=== PATIENT | female | born 1980 | race African-American/Black ===

== ENCOUNTER → 2022-05-16 14:35 | Outpatient (CLI) | payer BC, SELFPAY ==
--- NOTE | ~2022-05-16 | MMUS_ITS ---
EXAMINATION: MM diagnostic stephen BI w daya, US breast BI complete HISTORY: Left 2:00 breast lump and indentation of right breast at 3:00 near cleavage. TECHNIQUE: ML, MLO and CC 3-D tomosynthesis images of both breasts were performed and synthetic 2-D i mages were generated. CAD analysis was submitted and interpreted. High resolution bilateral complete breast ultrasound examination including all 4 quadrants and subareolar areas was performed. COMPARISON: 06/22/2018 bilateral diagnostic mammography and complete right breast ultrasound BREAST PARENCHYMAL COMPOSITION: The breasts are extremely dense, which lowers the sensitivity of mamm ography. FINDINGS: MAMMOGRAPHIC FINDINGS: No suspicious mass or architectural distortion, malignant calcification, skin thickening or retractio n or significant new or developing density is detected. Scattered bilateral benign appearing microcal cifications, mostly punctate....................... ULTRASOUND: There are scattered bilateral renal cysts, the largest on the right situated at 2:00 3 cm from the nipple, measuring 7.8 x 13.8 x 14.5 mm, with through transmission and posterior enhancement . The largest on the left measures 4.2 x 5.9 x 6.3 mm, situated at 2:00 8 cm from nipple. There is a parallel circumscribed hypoechoic 3.4 x 5.8 x 6.5 mm lesion at numerous 2:00 4 cm from the nipple, without shadowing. No suspicious solid lesion or shadowing of either breast is evident. IMPRESSION: 1. Benign findings 2. Routine annual mammographic screening is recommended BI-RADS Category 2: Benign finding(s). Reviewed, dictated and finalized at location A. FICATION MANAGER IMPRESSION: 1. Benign findings 2. Routine annual mammographic screening is recommended BI-RADS Category 2: Benign finding(s).
== END ==
PROVIDERS: PCP Nurse Practitioner; Visit Provider Nurse Practitioner
DX: N63.21 Unspecified lump in the left breast, upper outer quadrant (principal); R92.8 Other abnormal and inconclusive findings on diagnostic imaging of breast
CPT/HCPCS: 76641; 77062; 77066; G0279

== ENCOUNTER 2023-10-12 07:54 | Outpatient (CLI) | payer BC, SELFPAY ==
--- NOTE | ~2023-10-12 | MMUS_ITS ---
EXAMINATION: MM diagnostic stephen BI w daya, US breast BI complete HISTORY: Palpable left breast lumps TECHNIQUE: Additional 3-D tomosynthesis images of the breasts were performed and synthetic 2-D images were generated. CAD analysis was submitted and interpreted. High resolution bilateral complete breas t ultrasound was performed. COMPARISON: Comparison to multiple prior studies sequentially, with oldest reviewed study dated 03/04. BREAST PARENCHYMAL COMPOSITION: Dense: The breasts are extremely dense, which lowers the sensitivity of mammography. FINDINGS: MAMMOGRAPHIC FINDINGS: . The breasts are stable. There are no new masses, calcifications or architectural distortion in eith er breast to suggest malignancy. ULTRASOUND: Complete bilateral US of all 4 quadrants of the breasts and retroareolar region was reviewed. Right breast: At 12:00, 4 cm from the nipple there is an oval parallel oriented hypoechoic 9 mm mass without posterior features, likely benign. At 3:00, 4 cm from the nipple, there is an 11 mm cyst. At 9:00, 2 cm from the nipple there is a 5 mm cyst. At 10:00, 10 cm from the nipple there is a 7 mm cyst . In the subareolar location there is a 3 mm cyst. Left breast: At 2:00 7 cm from the nipple there is an 8 mm cyst. At 8:00, 4 cm from the nipple there is a slightly irregular shaped hypoechoic parallel oriented 5 mm mass with heterogeneous internal ech otexture, posterior acoustic enhancement and no internal vascularity. IMPRESSION: 1. Probable benign bilateral breast masses. 2. Recommend 6 month follow-up Limited right breast ultrasound of mass at 12:00, 4 cm from the nipple measuring 9 mm and in the left breast at 8:00, 4 cm from the nipple measuring 5 mm. BI-RADS category 3, probably benign findings. Reviewed, dictated and finalized at location B. IMPRESSION: 1. Probable benign bilateral breast masses. 2. Recommend 6 month follow-up Limited right breast ultrasound of mass at 12:00 , 4 cm from the nipple measuring 9 mm and in the left breast at 8:00, 4 cm from the nipple measuring 5 mm. BI-RADS category 3, probably benign findings.
== END 2023-10-12 07:55 ==
LOC: MICIMG 07:55
PROVIDERS: PCP Nurse Practitioner; Visit Provider Nurse Practitioner
DX: R92.8 Other abnormal and inconclusive findings on diagnostic imaging of breast (principal)
CPT/HCPCS: 76641; 77062; 77066; G0279

== ENCOUNTER 2025-03-20 02:49 | Day surgery (SDC) | payer BC, SELFPAY ==
--- OUTSIDE RECORDS SUMMARY | 2016-03-25 | XMS_ITS | Encounter Summary ---
Author Organization [facility] Healthcare Address [address] [place] [address] Care Team Providers Care Rag Washer Name Role Phone Unavailable Primary Care Provider Unavailabl e Reason for Visit * Diagnostic Imaging (Routine) - Closed Specialty Diagnoses / Procedures Referred By Damian fu Referred To Contact Procedures Breast Imaging US Outside Reference Katie Childers NP Phone: tel: fax: Referral ID Status Reason Start Date Expiration Date Visits Re quested Visits Authorized [id number] Closed 05/23/2022 06/22/2023 1 1 Encounter Details Date Type Department Care Team (Late st Contact Info) Description 03/25/2016 Hospital Encounter [facility] [address] [place] [address] Social History Tobacco Use Types Packs/Day Years Used Date Smoking Tobacco: Never Passive Smoke Exposure: Never Smokeless Tobacco: Never Alcohol Use Standard Drinks/Week Comments Yes 0 (1 standard drink = 0.6 oz pur e alcohol) PHQ-2 Answer Date Recorded PHQ-2 Total Score (If total score is 3 or more points, staff should administer the PHQ-9) 4 01/13/2025 PHQ-9 Answer Date Recorded PHQ-9 Total Score 13 01/13/2025 AUDIT-C Answer Date Recorded Q1: How often do you have a drink containing alc ohol? Monthly or less 01/13/2025 Q2: How many drinks containi ng alcohol do you have on a typical day when you are drinking? 1 or 2 01/13/2025 Q3: How often do you have si x or more drinks on one occasion? 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 Gender Identity Female 10/14/2019 9:21 AM CDT Sexual Orientation Not on file documented as of this encounter Plan of Treatment Not on file documented as of this encounter Procedures Procedure Name Priority Date/Time Associated Diagnosis Comments BREAST IMAGING US OUTSIDE REFERENCE Routine 03/25/2016 12:00 AM GARBAGE COLLECTION SUPERVISOR documented in this encounter Results * Breast Imaging US Outside Reference (03/25/2016 12:00 AM GARBAGE COLLECTION SUPERVISOR) Impressions [facility] - 05/23/2022 8:39 AM GARBAGE COLLECTION SUPERVISOR These images are for Reference purposes only and have not been reviewed by [facility]. There will be no report generated by a [facility] Radiologist. Narrative [facility] - 05/23/2022 8:39 AM GARBAGE COLLECTION SUPERVISOR EXAMINATION: Images For Reference Purposes Only us Katie Childers DYE RANGE OPERATOR IMG MAMMO PROCEDURES Fin al Result [facility] documented in this encounter Visit Diagnoses Not on filedocumented in this encounter
--- OUTSIDE RECORDS SUMMARY | 2016-03-25 00:05 | XMS_ITS | Encounter Summary ---
Author Organization [facility] Healthcare Address [address] [place] [address] Care Team Providers Care Electronic Equipment Installer Name Role Phone Unavailable Primary Care Provider Unavailabl e Reason for Visit * Diagnostic Imaging (Routine) - Closed Specialty Diagnoses / Procedures Referred By Damian fu Referred To Contact Procedures Breast Imaging Diagnostic Outside Reference Katie Childers NP Phone: tel: fax: Referral ID Status Reason Start Date Expiration Date Visits Re quested Visits Authorized [id number] Closed 05/23/2022 06/22/2023 1 1 Encounter Details Date Type Department Care Team (Late st Contact Info) Description 03/25/2016 12:05 AM INTERNET ASSESSOR Hospital Encounter [facility]) [address] [place] [address] Social History Tobacco Use Types Packs/Day Years [...] on file Legal Sex Female 4:50 AM INTERNET ASSESSOR Gender Identity Female 10/14/2019 9:21 AM CDT Sexual Orientation Not on file documented as of this encounter Plan of Treatment Not on file documented as of this encounter Procedures Procedure Name Priority Date/Time Associated Diagnosis Comments BREAST IMAGING MG DIAGNOSTIC OUTSIDE REFERENCE Routine 03/25/2016 12:05 AM INTERNET ASSESSOR documented in this encounter Results * Breast Imaging Diagnostic Outside Reference (03/25/2016 12:05 AM INTERNET ASSESSOR) Impressions [facility] - 05/23/2022 8:39 AM INTERNET ASSESSOR These images are for Reference purposes only and have not been reviewed by [facility]. There will be no report generated by a [facility] Radiologist. Narrative [facility] - 05/23/2022 8:39 AM INTERNET ASSESSOR EXAMINATION: Images For Reference Purposes Only us Katie Childers NP IMG MAMMO PROCEDURES Fin al Result [facility] documented in this encounter Visit Diagnoses Not on filedocumented in this encounter
--- OUTSIDE RECORDS SUMMARY | 2018-06-21 23:00 | XMS_ITS | Encounter Summary ---
Author Organization [facility] Healthcare Address [address] [place] [address] Care Team Providers Care Body Straightener Name Role Phone No, Physician Primary Care Provider [phone] Reason for Visit * Diagnostic Imaging (Routine) - Closed Specialty Diagnoses / Procedures Referred By Contanton t Referred To Contact Procedures Breast Imaging US Outside Reference Katie Childers NP Phone: tel: fax: Referral ID Status Reason Start Date Expiration Date Visits Re quested Visits Authorized [id number] Closed 05/23/2022 06/22/2023 1 1 Encounter Details Date Type Department Care Team (Late st Contact Info) Description 06/22/2018 Hospital Encounter [facility] [address] [place] [address] Social History Tobacco Use Types Packs/Day Years [...] on file 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 There will be no report generated by a [facility] Radiologist. Narrative [facility] - 05/23/2022 8:38 AM HELICOPTER PILOT INSTRUCTOR EXAMINATION: Images For Reference Purposes Only us Katie Childers HEPATOLOGY PHYSICIAN IMG MAMMO PROCEDURES Fin al Result [facility] documented in this encounter Visit Diagnoses Not on filedocumented in this encounter Care Teams Body Straightener Relationship Specialty Start Date End Date No, Physician PCP - General 04/17/17 01/12/25 documented as of this encounter
--- OUTSIDE RECORDS SUMMARY | 2018-06-21 23:05 | XMS_ITS | Encounter Summary ---
Author Organization [facility] Healthcare Address [address] [place] [address] Care Team Providers Care Police Officer Name Role Phone No, Physician Primary Care Provider [phone] Reason for Visit * Diagnostic Imaging (Routine) - Closed Specialty Diagnoses / Procedures Referred By Contanton t Referred To Contact Procedures Breast Imaging Diagnostic Outside Reference Katie Childers NP Phone: tel: fax: Referral ID Status Reason Start Date Expiration Date Visits Re quested Visits Authorized [id number] Closed 05/23/2022 06/22/2023 1 1 Encounter Details Date Type Department Care Team (Late st Contact Info) Description 06/22/2018 12:05 AM CDT Hospital Encounter 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 Gender Identity Female 10/14/2019 9:21 AM CDT Sexual Orientation Not on file documented as of this encounter Plan of Treatment Not on file documented as of this encounter Procedures Procedure Name Priority Date/Time Associated Diagnosis Comments BREAST IMAGING MG DIAGNOSTIC OUTSIDE REFERENCE Routine 06/22/2018 12:05 AM CDT documented in this encounter Results * Breast Imaging Diagnostic Outside Reference (06/22/2018 12:05 AM CDT) Impressions [facility] - 05/23/2022 8:38 AM STATISTICAL MACHINE SERVICER These images are for Reference purposes only and have not been reviewed by [facility]. There will be no report generated by a [facility] Radiologist. Narrative [facility] - 05/23/2022 8:38 AM STATISTICAL MACHINE SERVICER EXAMINATION: Images For Reference Purposes Only us Katie Childers TEACHER SPECIALIST IMG MAMMO PROCEDURES Fin al Result [facility] documented in this encounter Visit Diagnoses Not on filedocumented in this encounter Care Teams Police Officer Relationship Specialty Start Date End Date No, Physician PCP - General 04/17/17 01/12/25 documented as of this encounter
[2025-03-18 13:17] VITALS: BMI 29.7
--- NOTE | 2025-03-18 13:29 | PC.NURSE ---
[facility] has started construction of its new state of the art ER which will open Spring 2026. With this, we anticipate parking may be a challenge for some our surgical patients and families. Parking spaces are limited but are available for all Surgical, obstetrics, and ER patients sharing this lot. If you arrive and find you are having a hard time finding a parking space, please note that we understand the challenges, please drive around the hospital and park near Hospital Entrance 1. When you enter this entrance, you can ask a volunteer to direct or take you back to the surgical waiting area to check in. We appreciate everyone?s understanding of these expected challenges while we build for your future. Report to the Outpatient Waiting Room, entrance under the green pavilion located off [address], at time _0900 on date _03/20/2025 . Planned Procedure Time: _1100 .? Time changes happen often and if your time is changed the preop area will call you the afternoon before. - You and your visitor will be asked to self-screen and do not enter if you have any COVID symptoms. Please call surgeon if you need to reschedule. - A mask is optional within the hospital at this time. Patients may have clear liquids (water, carbonated beverages, clear teas, apple juice) until 3 hours prior to surgery with a maximum of 20 ounces. - No food from midnight until time of surgery and no smoking, or chewing tobacco (or any form of nicotine). No chewing gum, candy or mints. - Infants may have breast milk until 4 hours before surgery, formula 6 hours prior to surgery. - Children will be allowed to drink immediately following surgery.? If applicable, please bring a bottle or sippy cup to assist with drinking. Juice, water, soda, and popsicles are readily available.? For infants on formula, please bring formula the day of surgery.? Pacifiers are allowed. Take only the following medications with a SIP of water on the morning of surgery: _N/A DO NOT STOP ANY OF YOUR OTHER PRESCRIPTION MEDICATIONS PRIOR TO SURGERY EXCEPT THE FOLLOWING Hold all vitamins and supplements for 3 days per anesthesiologist. Medications to discontinue per physician __Phentermine, has been stopped for a month Please no make-up, nail irish, hairspray, perfume, deodorant, or body powder the day of surgery.? No jewelry (including any body piercings) or valuables the day of surgery, leave them at home.? Please take a shower or bath the night before, or the morning of, surgery with an antibacterial soap.? Wear comfortable, loose fitting clothing.? Children are encouraged to wear pajamas. - Jewelry must be removed prior to entering the operating room.? Rings and piercings that are not removed may be cut off. - The hospital will not accept responsibility for valuables.? - Please leave all valuables, including medications, at home the day of surgery. If you are going home after surgery, a licensed courier delivery driver must drive you home.? - NO public transportation without another adult if you receive anesthesia. - We recommend that an adult stay with you for 24 hours following discharge. - We also recommend that you do not drive, make important decision, drink alcoholic beverages, or take any drugs that were not prescribed by your health care provider for at least 24 hours after your discharge time. For Pediatric surgeries, we recommend two adults accompany the child home. Follow any additional instructions given to you from your surgeon. Telephone instructions given to __Jocelyne and asked if any additional questions and then verbalized understanding. Patient advised to call surgeon office or pre surgery nurse liaison [phone] if any additional questions.
[2025-03-20] VITALS (12 sets, daily range): BP systolic 97–137; BP diastolic 47–87; PULSE 70–95; RESP 12–17; TEMP 36.3–37.1; O2SAT 98–100
--- OUTSIDE RECORDS SUMMARY | 2025-03-20 02:52 | XMS_ITS | Patient Health Record ---
Author Organization [facility] Address [address] [place] [address] Care Team Providers Care Sales Promotion Representative Name Role Phone UNKNOWN, UNKNOWN Primary Care Provider Unavailab sp DewittaNagaie Unavailable [phone] Allergies No Known Allergies Reason For Referral No Information Medications Medication SIG (Take, Route, Fr equency, Duration) Notes Start Date End Date Status Multi Vitamin Daily Active Social History Tobacco Use: Social History Observation Description Date Details (start date - stop date) Never Smoker NA - NA Social History Tobacco Use: Social Info Question Answer Notes Tobacco Use/Smoking Are you a nonsmoker Additional Details Category Social Info Options Details Miscellaneous: Exercise: Moderate 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 De nies Alcohol use: Social alcohol u se Plan Of Treatment No Information Insurance Providers Payer Name Payer Address Payer Phone Subscriber Number Group Number Insured Name Patient Relationship to Insured Coverage Start Date Coverage End Date [facility] [address] [place] [address] [id number] Jocelyne Johns Self - patient is the insured [facility] [address] [place] [address] [id number] Jocelyne Johns Self - patient is the insured Medical (General) History Surgical History Surgery Date(Month/Year)
--- OUTSIDE RECORDS SUMMARY | 2025-03-20 02:52 | XMS_ITS | Clinical Summary ---
Author Organization [facility] Address [address] [place] [address] Phone Care Team Providers Care Marketing Content Coordinator Name Role Phone RonymenaChristine HVAC SERVICE TECH Unavailable [phone] [facility] Primary Care Provi umer Allergies No known active allergies Medications vitamin b complex tablet Take 1 tablet by mouth daily Active calcium carbonate-vitam in D3 2,500 mg (1,000 mg elemental)-800 unit tablet Take by mouth Acti ve BIOTIN ORAL Take by mouth Acti ve Simpesse 0.15 mg-30 mcg (84)/10 mcg (7) tablets,dose pack,3 month Take 1 tablet by mouth daily 5 Active sertraline (ZOLOFT) 50 mg tabletIndicatio ns:Anxiety with Depression Take 1 tablet (50 mg total) by mouth daily 90 tablet 1 5 01/14/20 26 Active traZODone (DESYREL) 100 mg tabletIndicatio ns:insomnia associated with depression Take 1 tablet (100 mg total) by mouth nightly as needed for sleep 90 tablet 1 5 Active phentermine (ADIPEX-P) 37.5 mg tablet Take 1 tablet (37.5 mg total) by mouth daily before breakfast 30 tablet 2 5 Active phentermine (ADIPEX-P) 37.5 mg tablet 0 5 03/17/20 25 Discontinu ed(Reorder ) Active Problems Problem Noted Date Diagnosed Date Annual physical exam 01/13/2025 Assessment & Plan (01/13/2025 6:58 AM CDT): Labs ordered Recommend drinking at least 64 oz of water daily Recommend at least 26g fiber daily Recommend at least 150 min of exercise weekly as tolerated Recommend taking daily multivitamin Continue eating a healthy well-balanced diet. Limit processed foods like white starches, fast food, sweets and soda. Increase your vegetable intake and limit red meat. Wear your seatbelt at all times. No texting and driving. Continue to manage your stress in a healthy manner. Follow-up 1 year for annual physical. Intrauterine polyp 01/13/2025 SHAILA (generalized anxiety disorder) 01/13/2025 Assessment & Plan (01/13/2025 9:39 AM CDT): Start sertraline 25 mg daily; sertraline 50 mg daily ordered, so take a half a tab daily. Medication and side effects reviewed Recommend therapy Follow up in one-month Current moderate episode of major depressive dis order 01/13/2025 Assessment & Plan (01/13/2025 9:40 AM CDT): Start sertraline 25 mg daily; sertraline 50 mg daily ordered, so take a half a tab daily. Medication and side effects reviewed Recommend therapy Follow up in one-month Perimenopause 01/13/2025 Insomnia, psychophysiological 01/13/2025 Assessment & Plan (01/13/2025 9:41 AM CDT): Take trazodone 50 mg nightly as needed; trazodone 100 mg tab ordered, so take half a tab nightly as needed Medication and side effects reviewed Follow up in one-month Encounter for weight loss counseling 01/13/2025 Assessment & Plan (01/13/2025 9:42 AM CDT): Continue phentermine 37.5 mg daily Monitor blood pressure, as phentermine can elevate blood pressure Follow up in one-month Blood pressure elevated without history of HTN 1 Assessment & Plan (01/13/2025 9:45 AM CDT): Keep a log of daily blood pressures Bring log to next appointment Goal blood pressure less than 140/90 Follow up in one-month Environmental and seasonal allergies 01/13/2025 Assessment & Plan (01/13/2025 9:45 AM CDT): Recommend taking a daily clca-[id number] antihistamine and Flonase to manage symptoms Overweight with body mass in dex (BMI) of 28 to 28.9 in adult 01/23/2015 Overview (01/13/2025): Body mass index (BMI) 28.0-28.9, adult;Practice ID: [id number] Assessment & Plan (01/13/2025 9:46 AM CDT): Continue phentermine 37.5 mg daily Your BMI is elevated. Try to cut back on calories. Most people should eat between 8208-0034 calories to lose weight. Goal BMI is less than 30. A healthy BMI is considered between 19-25. Decrease your carbohydrate intake to less than 150 grams per day if possible and increase protein to help with hunger. Increase activity to 30 min 4-5 days a week of moderate aerobic activity and add strength training 2 times weekly, as tolerated. Consider using Jaypore ricky to track diet and exercise habits daily. Consider trying Weight Watcher program to make dietary changes. Visit www.dietaryguidelines.gov, www.myplate.gov, or www.health.gov for more dietary information and tips. Visit www.[employer] or www.[employer] for online globe tester covered by health insurance. Congenital malformation 03/09/2014 Overview (01/13/2025): screening for malformation using ultrasonics;Practice ID: 0001 Breast lump 10/31/2012 Overview (01/13/2025): Breast Lump Or Mass;Recorded Elsewhere: No Location: [facility] Source: EHR Chronic: N Practice ID: [id number] Billable Time: 11:00:00 AM Resolved Problems Problem Noted Date Diagnosed Date Resolved Date Lump in lower outer quadrant of right breast 9 01/13/2025 Overview (01/13/2025): Unspecified lump in the right breast, lower outer quadrant;Practice ID: 0001 Acute vaginitis 03/20/2016 01/13/2025 Overview (01/13/2025): Acute vaginitis;Recorded Elsewhere: No Location: [facility] Source: EHR Chronic: N Practice ID: [id number] Billable Time: 08:30:00 AM High-risk human papillomavir us (HPV) DNA detected in cervical specimen 02/01/2015 01/13/2025 Overview (01/13/2025): Cervical high risk HPV DNA test positive;Recorded Elsewhere: No Location: [facility] Source: EHR Chronic: N Practice ID: [id number] Billable Time: 11:22:34 AM Cervical high risk HPV (jeanette n papillomavirus) test positive 04/02/2014 01/13/2025 Echogenic intracardiac focus of fetus on ultrasound 04/02/2014 01/13/2025 Dichorionic diamniotic twin 03/23/2014 01/13/2025 Overview (01/13/2025): TWIN GEST-DICH/DIAMNIOTC;Practice ID: [id number] Atypical squamous cells of u ndetermined significance (ASCUS) on Papanicolaou smear of cervix 02/10/2014 01/13/2025 Overview (01/13/2025): Papanicolaou smear of cervix with atypical squamous cells of undetermined significance (ASC-US);Recorded Elsewhere: No Location: [facility] Source: EHR Chronic: N Practice ID: [id number] Billable Time: 12:00:00 PM Amenorrhea 01/07/2014 01/13/2025 Overview (01/13/2025): Absence of menstruation;Recorded Elsewhere: No Location: [facility] Source: EHR Chronic: N Practice ID: [id number] Billable Time: 03:30:00 PM Conduction disorder of the heart 12/23/2013 01/13/2025 Overview (01/13/2025): Bradycardia;Recorded Elsewhere: No Location: [facility] Source: EHR Chronic: N Practice ID: [id number] Billable Time: 01:11:32 PM resulting from ass isted reproductive technology 12/16/2013 01/13/2025 Twin 12/16/2013 01/13/2025 Ovarian dysfunction 03/29/2013 01/14/20 25 Papanicolaou smear of cervix with atypical squamous cells cannot exclude high grade squamous intraepithelial lesion (ASC-H) 02/13/2013 01/13/2025 Overview (01/13/2025): Papanicolaou smear of cervix with atypical squamous cannot exclude high grade squamous intraepithelial lesion (ASC-H);Recorded Elsewhere: No Location: [facility] Source: EHR Chronic: N Practice ID: [id number] Billable Time: 04:30:00 PM Encounters Date Type Department Care Team Description 01/13/2025 9:00 AM CDT Office Visit [address] [place] [address] Tomeka Henry DNP Annual physical exam (Primary Dx); Encounter to establish care; Depression screen; Encounter for weight loss counseling; Blood pressure elevated without history of HTN; SHAILA (generalized anxiety disorder); Current moderate episode of major depressive disorder without prior episode (HCC); Insomnia, psychophysiological; Environmental and seasonal allergies; Perimenopause; Overweight with body mass index (BMI) of 28 to 28.9 in adult; Screening for diabetes mellitus; Lipid screening; Thyroid disorder screen; Encounter for vitamin deficiency screening; Encounter for long-term (current) use of medications; Breast cancer screening by mammogram; Need for immunization against influenza; Flu vaccine need 01/08/2025 Orders Only [address] [place] [address] No, Physician from Last 3 Months Immunizations Immunization Administration Dates Next Due Influenza, Trivalent, Preservative Free, Intramu scular 01/13/2025 Surgical History Surgery Date Site/Laterality Comments SECTION 04/03/2014 - 04/02/2015 had a wound vac due to being reopened CERVICAL BIOPSY W/ LOOP ELECTRODE EXCISION COLPOSCOPY Medical History Medical History Date Comments resulting from ass isted reproductive technology 12/16/2013 Cervical high risk HPV (jeanette n papillomavirus) test positive 04/02/2014 Twin 12/16/2013 Ovarian dysfunction 03/29/2013 Echogenic intracardiac focus of fetus on ultrasound 04/02/2014 Atypical squamous cells of undetermined significance (ASCUS) on Papanicolaou smear of cervix 02/10/2014 Papanicolaou smear of cer vix with atypical squamous cells of undetermined significance (ASC-US);Recorded Elsewhere: No Location: [facility] Source: EHR Chronic: N Practice ID: [id number] Billable Time: 12:00:00 PM Papanicolaou smear of cervix with atypical squamous cells cannot exclude high grade squamous intraepithelial lesion (ASC-H) 02/13/2013 Papanicolaou smear of c ervix with atypical squamous cannot exclude high grade squamous intraepithelial lesion (ASC-H);Recorded Elsewhere: No Location: [facility] Source: EHR Chronic: N Practice ID: [id number] Billable Time: 04:30:00 PM High-risk human papillomavir us (HPV) DNA detected in cervical specimen 02/01/2015 Cervical high risk H PV DNA test positive;Recorded Elsewhere: No Location: [facility] Source: EHR Chronic: N Practice ID: [id number] Billable Time: 11:22:34 AM Dichorionic diamniotic twin 03/23/2014 TWIN GEST- DICH/DIAMNIOTC;Practice ID: [id number] Conduction disorder of the heart 12/23/2013 Bradycardia;Recorded Elsewhere: No Location: [facility] Source: EHR Chronic: N Practice ID: [id number] Billable Time: 01:11:32 PM Lump in lower outer quadrant of right breast 05/27/2018 Unspecified lump in the righ t breast, lower outer quadrant;Practice ID: 0001 Family History Medical History Relation Name Comments Hypertension Father Cancer Maternal Grandfather Reporte d Family History Of Cancer - Mother- carcinoid, diagnosed in 40's, now doing well Grandfather- lung cancer, h/o tobacco use Relation: Grandfather (Added by TW Conv) Lung cancer Maternal Grandfather Diabetes Maternal Grandmother Obesity Maternal Grandmother Premature Menopause Maternal Grandmother Cancer Mother Reported Family History Of Cancer - Mother- carcinoid, diagnosed in 40's, now doing well Grandfather- lung cancer, h/o tobacco use (Added by TW Conv) Stomach cancer Mother metastatic carcinoid Mother Relation Name Status Comments Father Maternal Grandfather Maternal Grandmother Mother Social History Tobacco Use Types Packs/Day Years [...] on file Legal Sex Female 4:50 AM [employer] Gender Identity Female 10/14/2019 9:21 AM CDT Sexual Orientation Not on file Obstetrics History Para Term AB IAB SAB Ectopic Multiple Livin g Live Births 0 0 0 0 1 Comments Patient had one wi th twins in 2014. Delivered via . Last Filed Vital Signs Vital Sign Reading Time Taken Comments Blood Pressure 134/88 01/13/2025 8:46 AM CDT Pulse 81 01/13/2025 8:46 AM CDT Temperature 36.8 C (98.3 F) 01/13/2025 8:46 AM CDT Respiratory Rate 16 01/13/2025 8:46 AM CDT Oxygen Saturation 97% 01/13/2025 8:46 AM CDT Inhaled Oxygen Concentration - - Weight 73.9 kg (163 lb) 01/13/2025 8:46 AM CDT Height 160 cm (5' 3) 01/13/2025 8:46 AM CDT Body Mass Index 28.87 01/13/2025 8:46 AM CDT Plan of Treatment Health Maintenance Due Date Last Done Comments Breast Cancer Screening-Mammogram 1981 Cervical Cancer Screening 1981 Hepatitis C Screening 1981 Varicella Vaccines (1 of 2 - 13+ 2-dose series) 1994 Hepatitis B Screening 06/03/1999 HPV Vaccines (1 - 3-dose SCDM series) 2008 DTaP/Tdap/Td Vaccine (2 - Td or Tdap) 04/22/2024 04/22/2014 Covid-19 Vaccine ( season) 2024 01/30/2021, 2020, 05/12/2020 Depression Screening 01/13/2026 01/13/2025, 01/14/20 Regular Well Visit/Exam 18-64 01/13/2026 01/13/2025 Influenza Vaccine Completed 01/13/2025, , 04/04/2021, Additional history exists Pneumococcal vaccine <65 Aged Out No longer eligible based on patient's age to complete this topic Insurance [employer] [facility] Care Teams Marketing Content Coordinator Relationship Specialty Start Date End Date Tomeka Henry DNP [address] [place] [address] PCP - General Family Medicine 01/13/25 Christine Howard NP Referring Physician Obstetrics and Gynecology 05/17/22
--- OUTSIDE RECORDS SUMMARY | 2025-03-20 02:52 | XMS_ITS | Data Portability ---
Author Organization [facility] Address [address] [place] [address] Assessment Encounter Date Assessment Date Assessment LastModified by Organization Details LastModified Time 09/11/2023 09/11/2023 Annual gynecological exam performed. Patient will come back in a year unless there are new symptoms. [email or web address] Not available 09/11/2023 14:56:27 Plan of Treatment Reminders Order Date Submit Date Provider Last Modified By Organization Details Last Modified Time Details Appointments SURG Hysterosc opy 2024 11:00A Jose WATKINS MD Not available Not available Not available SURG POST OP 2024 12:00P Jose WATKINS MD Not available Not available Not available Lab hbcab (hepatiti s B core Ab) igm, serum [address] [facility] (Lab), [address], [place], [address], 06/15/2024 14:10:02 HBsAg (hepatiti s B surface Ag), serum [address] [facility] (Lab), [address], [place], [address], 06/15/2024 14:09:59 hepatitis C virus Ab, serum [address] [facility] (Lab), [address], [place], [address], 06/15/2024 14:09:59 HIV 1+2 AB + HIV 1 p24 Ag, qualitati ve immunoass ay, serum [address] [facility] (Lab), [address], [place], [address], 06/15/2024 14:09:59 RPR (rapid plasma reagin), serum [address] [facility] (Lab), [address], [place], [address], 06/15/2024 14:10:02 dhea-sulf ate, serum [address] [facility] (Lab), [address], [place], [address], 06/15/2024 14:09:58 hormone panel, serum or plasma [address] [facility] (Lab), [address], [place], [address], 06/15/2024 14:10:00 progester one, serum [address] [facility] (Lab), [address] [place], [address], 06/15/2024 14:10:00 prolactin , serum [address] [facility] (Lab), [address] [place], [address], 06/15/2024 14:10:00 shbg (sex hormone-b inding globulin) , serum [address] [facility] (Lab), [address] [place], [address], 06/15/2024 14:10:01 TSH, serum or plasma [address] [facility] (Lab), [address] [place], [address], 06/15/2024 14:10:01 testoster one free/test osterone total, ratio, serum [address] [facility] (Lab), [address] [facility], [place], [address], 06/15/2024 14:10:02 CBC w/ auto diff [address] [facility] (Lab), [address] [facility], [place], [address], 06/15/2024 14:09:58 test, urine 2024 025 [email or web address] [facility], [address], [address], [place], [address], 06/06/2024 09:48:14 Referral None recorded. Procedures None recorded. Surgeries hysterosc opy, with endometri al ablation (SURG) 2024 025 [email or web address] [facility], [address], [place], [address], 02/11/2025 12:08:09 Imaging US, pelvis 2024 025 [facility], [address], [address], [place], [address], 06/12/2024 12:04:20 US, transvagi nal 2024 025 [facility], [address], [address], [place], [address], 06/12/2024 12:04:28 US, pelvis, complete 2024 [email or web address], [address], [place], [address], 06/25/2024 15:39:43 MAMMO, diagnosti c, digital, bilateral 2023 024 [facility], [address], [place], [address], 10/12/2023 12:42:07 US, breast, unilatera l - left breast lumps, around 2oclock/o uter quadrant 2023 024 [facility], [address], [place], [address], 03/17/2024 05:01:48 Medication Orders Seasoniqu e 0.15 mg-30 mcg (84)/10 mcg(7) tablets,3 month dose pack 2024 025 [id number], [address], [place], [id number], 10/10/2024 18:30:10 Patient TargetsNo targets recorded. Patient InstructionsNo instructions recorded. Reason for Referral None Reported. Results Created Date Observation Date Name Description Value Unit Range Abnormal Flag Note LastModifiedBy Organization Detail LastModifiedTime 09/11/19 24 09/11/2023 IMAGE GUIDE D PAP AND HPV REGAR DLESS image guided Pap, HPV regardless of Pap result SEE RESULT S BELOW CASE REPOR T: Cytol ogy Gynec ologi jessica Repor t Case: [id number] Autho marvin g Provi umer: Christine Howard, BABAR Colle cted: 09/10 1532 Order ing Locat ion: [place] Patho log[facility] Recei ej: 09/11 1138 First Scree n: Sarah Costello , CT Speci men: Scree lazaro Pap - Image d, Cervi x STATE MENT OF ADEQU ACY: Satis facto ry for evalu ation Trans forma tion zone compo nent prese nt ----- ----- ----- ----- ----- ----- ----- ----- ----- ----- ----- ----- ----- ----- ----- ----- ----- ---- FINAL DIAGN OSIS: Negat jay for Intra epith elial Lesio nat or Veronica gómez (NIL) . Elect shawnee ramirez d by Sarah Costello , CT on 2023 at 2:46 PM ----- ----- ----- ----- ----- ----- ----- ----- ----- ----- ----- ----- ----- ----- ----- ----- ----- ---- HPV RESUL TS: HPV mRNA E6/E7 : No HPV mRNA Detec juan NOTE: This high risk HPV mRNA assay detec ts fourt een high- risk HPV types (16, 18, 31, 33, 35, 39, 45, 51, 52, 56, 58, 59, 66, 68) witho ut diffe renti ation . COMME NT: This speci men was revie wed by a Cytot echno logis t and/o r Patho logis t (as indic ated in this repor t) after evalu ation using the Thinp rep Imagi ng Syste m. CLINI JESSICA INFOR MATIO N: Menst rual Statu s: LMP (if appli cable ): Clini jessica Histo ry/Pr eviou s Pap: Type of Neopl erik (if appli cable ): Signi fican t Clini jessica Findi ngs: Other Histo ry: Hormo kinjal (if appli cable ): PAP EDUCA ABEL L NOTE: The Pap Test is a scree lazaro test with an inher ent false negat jay rate. Liqui d-bas ed sampl ing may decre ase, but will not elimi maikel, false negat jay resul ts. A negat jay resul t does not precl ude the prese nce and/o r devel opmen t of disea se, since the prese nce of abnor mal cells in the sampl e depen ds on the locat ion of the lesio n and sampl ing techn ique. Carrie nued regul ar scree lazaro is the best metho d of cance r preve ntion . If repor juan cytol ogic findi ng do not corre late with physi jessica and/o r histo rical findi ngs, alison chiang is recom lety d, as clini ana maria arellano nted. Not Available [facility] (Lab) [address] [facility], [place], [address], 09/13/2023 16:14:23 09/11/19 24 09/11/2023 TRICH OMONA S VAGIN NHI (RRNA ) trichomonas vaginalis ribosomal RNA (rrna) Negati ve negati ve Not Available [facility] (Lab) [address] [facility], [place], [address], 09/13/2023 16:14:24 09/11/19 24 09/11/2023 CT/GC (ROMINA) , THINP REP VIAL chlamydia trachomatis, PCR Negati ve negati ve Not Available [facility] (Lab) [address] [facility], [place], [address], 09/13/2023 16:14:24 09/11/19 24 09/11/2023 CT/GC (ROMINA) , THINP REP VIAL neisseria gonorrhoeae, PCR Negati ve negati ve Not Available [facility] (Lab) [address] [place], [address], 09/13/2023 16:14:24 06/07/19 25 06/06/2024 WOMEN 'S HEALT H SWAB PLUS, MILTON bacterial vaginosis (bv), tma Negati ve negati ve Not Available [facility] (Lab) [address] [place], [address], 06/07/2024 15:50:42 06/07/19 25 06/06/2024 WOMEN 'S HEALT H SWAB PLUS, MILTON martinez species, tma Negati ve negati ve Not Available [facility] (Lab) [address] [place], [address], 06/07/2024 15:50:42 06/07/19 25 06/06/2024 WOMEN 'S HEALT H SWAB PLUS, MILTON martinez glabrata, tma Negati ve negati ve Not Available [facility] (Lab) [address] [place], [address], 06/07/2024 15:50:42 06/07/19 25 06/06/2024 WOMEN 'S HEALT H SWAB PLUS, MILTON trichomonas vaginalis, tma Negati ve negati ve Not Available [facility] (Lab) [address] [place], [address], 06/07/2024 15:50:42 06/07/19 25 06/06/2024 [facility] [place] chlamydia trachomatis, PCR Negati ve negati ve Not Available [facility] (Lab) [address] [place], [address], 06/07/2024 15:50:42 06/07/19 25 06/06/2024 WOMEN 'S HEALT H SWAB PLUS, MILTON neisseria gonorrhoeae, PCR Negati ve negati ve Bacte rial vagin osis detec ts the follo wing bacte elsy assoc iated with bacte rial vagin osis (BV): Lacto bacil inez (L. gasse ri, L. crisp atus and L. jense caitlin), Gardn erell a vagin nhi, and Atopo bium vagin ae. A singl e quali tativ e resul t is repor juan base on instr ument softw are to deter mine BV posit jay or negat jay statu s. The Sarai da speci es group tests for C. albic ans, C. tropi calis , C. parap elizabeth is, C. dubli ni is. Testi ng is perfo rmed using the Trans cript ion Media juan Ampli ficat ion metho d. Tests for Sarai da glabr niko, Trich omona s vagin nhi, Chlam ydia trach omati s, and Neiss eria gonor rhoea e are also inclu ded in this panel . Not Available [facility] (Lab) [address], [place], [address], 06/07/2024 15:50:42 06/07/19 25 06/06/2024 CBC W/DIF F WBC 4.2 10'3/ uL 3.5-10 .5 Not Available [facility] (Lab) [address], [place], [address], 06/15/2024 14:09:58 06/07/19 25 06/06/2024 CBC W/DIF F RBC 4.76 10'6/ uL (based on docume nted legal sex) 3.80-5 .20 Not Available [facility] (Lab) [address], [place], [address], 06/15/2024 14:09:58 06/07/19 25 06/06/2024 CBC W/DIF F HGB 13.4 g/dL (based on docume nted legal sex) 11.6-1 5.4 Not Available [facility] (Lab) [address], [place], [address], 06/15/2024 14:09:58 06/07/19 25 06/06/2024 CBC W/DIF F HCT 42.6 % (based on docume nted legal sex) 34.0-4 5.0 Not Available [facility] (Lab) [address], [place], [address], 06/15/2024 14:09:58 06/07/19 25 06/06/2024 CBC W/DIF F MCV 89.5 fL 80.0-9 9.0 Not Available [facility] (Lab) [address], [place], [address], 06/15/2024 14:09:58 06/07/19 25 06/06/2024 CBC W/DIF F MCH 28.2 pg 27.0-3 4.0 Not Available [facility] (Lab) [address] [place], [address], 06/15/2024 14:09:58 06/07/19 25 06/06/2024 CBC W/DIF F MCHC 31.5 g/dL 32.0-3 5.5 low Not Available [facility] (Lab) [address] [facility], [place], [address], 06/15/2024 14:09:58 06/07/19 25 06/06/2024 CBC W/DIF F RDW 13.4 % 11.0-1 5.0 Not Available [facility] (Lab) [address] [facility], [place], [address], 06/15/2024 14:09:58 06/07/19 25 06/06/2024 CBC W/DIF F plt 366 10'3/ uL 150-40 0 Not Available [facility] (Lab) [address] [facility], [place], [address], 06/15/2024 14:09:58 06/07/19 25 06/06/2024 CBC W/DIF F MPV 9.9 fL 8.8-12 .1 Not Available [facility] (Lab) [address] [facility], [place], [address], 06/15/2024 14:09:58 06/07/19 25 06/06/2024 CBC W/DIF F neutrophils 52.8 % 34.0-7 3.0 Not Available [facility] (Lab) [address] [facility] [address], [place], [address], 06/15/2024 14:09:58 06/07/19 25 06/06/2024 CBC W/DIF F lymphocytes 37.1 % 15.0-5 0.0 Not Available [facility] (Lab) [address] [place], [address], 06/15/2024 14:09:58 06/07/19 25 06/06/2024 CBC W/DIF F monocytes 6.9 % 1.0-15 .0 Not Available [facility] (Lab) [address] [facility], [place], [address], 06/15/2024 14:09:58 06/07/19 25 06/06/2024 CBC W/DIF F eosinophils 2.2 % 0.0-8. 0 Not Available [facility] (Lab) [address] [facility], [place], [address], 06/15/2024 14:09:58 06/07/19 25 06/06/2024 CBC W/DIF F basophils 1.0 % 0.0-2. 0 Not Available [facility] (Lab) [address] [facility], [place], [address], 06/15/2024 14:09:58 06/07/19 25 06/06/2024 CBC W/DIF F immature granulocytes 0.0 % no define d refere nce range Immat ure Granu locyt es (IG) repre sents autom ated enume ratio n of Metam yeloc ytes, Myelo cytes and Promy elocy niall when IG is < 5%. Blast s are not inclu ded in IG and repor juan separ ately if prese nt. Not Available [facility] (Lab) [address] [facility], [place], [address], 06/15/2024 14:09:58 06/07/19 25 06/06/2024 CBC W/DIF F absolute neutrophils 2.2 10'3/ uL 1.5-8. 0 Not Available [facility] (Lab) [address] [facility], [place], [address], 06/15/2024 14:09:58 06/07/19 25 06/06/2024 CBC W/DIF F absolute lymphocytes 1.6 10'3/ uL 1.0-4. 0 Not Available [facility] (Lab) [address] [facility], [place], [address], 06/15/2024 14:09:58 06/07/19 25 06/06/2024 CBC W/DIF F absolute monocytes 0.3 10'3/ uL 0.2-1. 0 Not Available [facility] (Lab) [address], [place], [address], 06/15/2024 14:09:58 06/07/19 25 06/06/2024 CBC W/DIF F absolute eosinophils 0.1 10'3/ uL 0.0-0. 6 Not Available [facility] (Lab) [address], [place], [address], 06/15/2024 14:09:58 06/07/19 25 06/06/2024 CBC W/DIF F absolute basophils 0.0 10'3/ uL 0.0-0. 3 Not Available [facility] (Lab) [address], [place], [address], 06/15/2024 14:09:58 06/07/19 25 06/06/2024 CBC W/DIF F absolute immature granulocytes 0.0 10'3/ uL 0.00-0 .10 Refer ence range s for nonbi nary/ inter sex or unspe cifie d gende r patie nts have not been estab lishe d. Pleas e refer to the follo wing table for range s estab lishe d for cisge nder patie nts and evalu ate in the clini jessica gely xt of the indiv idual patie nt: https ://bryan mccoy book. nm.or g/gen derx Not Available [facility] (Lab) [address], [place], [address], 06/15/2024 14:09:58 06/07/19 25 06/06/2024 DHEA SULFA TE DHEA-sulfate 64 ug/dL Femal e Range s Age(y ) Range (ug/d L) 10-15 34-28 0 15-20 65-36 8 20-25 148-4 07 25-35 99-34 0 35-45 61-33 7 45-55 35-25 6 55-65 19-20 5 65-75 9-246 > 75 12-15 4 Not Available [facility] (Lab) [address], [place], [address], 06/15/2024 14:09:58 06/07/1906/06/2024 HEPAT ITIS C ANTIB AILYN SCREE N, REFLE X TO CONFI RMATI ON hepatitis C antibody Non-re active non-re active Antib odies to HCV Not Detec juan, does not exclu de the possi bilit y of expos ure to HCV. Not Available [facility] (Lab) [address] [place], [address], 06/15/2024 14:09:59 06/07/19 25 06/06/2024 HEPAT ITIS B SURFA CE ANTIG EN hepatitis B surface antigen Non-re active non-re active This assay was perfo rmed using [employer] ratio n reage nts and test kits. Value s obtai shira with other assay metho ds or kits canno t be used inter schwartz eably . Not Available [facility] (Lab) [address] [place], [address], 06/15/2024 14:09:59 06/07/1906/06/2024 HIV 1/2 ANTIG EN/AN TIBOD Y, REFLE X CONFI RMATI ON HIV antigen/anti body Nonrea ctive nonrea ctive HIV-1 antig en and HIV-1 /HIV- 2 antib odies were not detec juan. No labor atory evide nce of HIV infec tion. Not Available [facility] (Lab) [address] [place], [address], 06/15/2024 14:09:59 06/07/1906/06/2024 PROLA CTIN prolactin, total 14.80 NG/mL 4.79-2 3.30 This assay was perfo rmed using [employer] ratio n reage nts and test kits. Value s obtai shira with other assay metho ds or kits canno t be used inter schwartz eably . Not Available [facility] (Lab) [address] [place], [address], 06/15/2024 14:10:00 06/07/19 25 06/06/2024 PROGE STERO NE progesterone 0.70 NG/mL This assay was perfo rmed using [employer] ratio n reage nts and test kits. Value s obtai shira with other assay metho ds or kits canno t be used inter [facility] . Femal e Proge stero ne Range s: Folli cular phase 0.06- 0.89 ng/mL Ovula tion phase 0.12- 12.00 ng/mL Lutea l phase 1.83- 23.90 ng/mL Postm enopa usal <0.05 -0.13 ng/mL Healt hy Pregn ant Women 1st Trime ster 11.0- 44.30 2nd Trime ster 25.40 -83.3 0 3rd Trime ster 58.70 -214. 00 Not Available [facility] (Lab) [address] [place], [address], 06/15/2024 14:10:00 06/07/19 25 06/06/2024 FSH, LH, ESTRA DIOL estradiol 20.8 pg/mL This assay was perfo rmed using [employer] ratio n reage nts and test kits. Value s obtai shira with other assay metho ds or kits canno t be used inter [facility] . Femal e Estra diol Range s: Folli cular phase 12.4- 233 pg/mL Ovula tion phase 41.0- 398 pg/mL Lutea l phase 22.3- 341 pg/mL Postm enopa usal <5-13 8 pg/mL Healt hy Pregn ant Women 1st Trime ster 154-3 243 pg/mL 2nd Trime ster 1561- 90067 pg/mL 3rd Trime ster 8525- >3000 0 pg/mL Not Available [facility] (Lab) [address] [place], [address], 06/15/2024 14:10:00 06/07/19 25 06/06/2024 FSH, LH, ESTRA DIOL FSH 15.1 mIU/m L This assay was perfo rmed using [employer] ratio n reage nts and test kits. Value s obtai shira with other assay metho ds or kits canno t be used inter [facility] . Femal es Folli cular : 3.5-1 2.5 mIU/m L Ovula tion: 4.7-2 1.5 mIU/m L Lutea l: 1.7-7 .7 mIU/m L Postm enopa use: 25.8- 134.8 mIU/m L Not Available [facility] (Lab) [address] [facility], [place], [address], 06/15/2024 14:10:00 06/07/19 25 06/06/2024 FSH, LH, ESTRA DIOL LH 7.8 mIU/m L This assay was perfo rmed using [employer] ratio n reage nts and test kits. Value s obtai shira with other assay metho ds or kits canno t be used inter [facility] . Femal es Mid-F ollic ular: 2.4-1 2.6 mIU/m L Mid-C ycle: 14.0- 95.6 mIU/m L Mid-L uteal : 1.0-1 1.4 mIU/m L Postm enopa use: 7.7-5 8.5 mIU/m L Not Available [facility] (Lab) [address] [facility], [place], [address], 06/15/2024 14:10:00 06/07/19 25 06/06/2024 TSH, REFLE X FREE T4 TSH 0.82 uIU/m L 0.30-5 .33 Not Available [facility] (Lab) [address] [place], [address], 06/15/2024 14:10:01 06/07/19 25 06/06/2024 HUMAN SEX HORMO NE WILLARD NG GLOBU BRUNO sex hormone binding globulin 57.1 nmole s/L 18.2-1 35.5 Not Available [facility] (Lab) [address] [place], [address], 06/15/2024 14:10:01 06/07/19 25 06/06/2024 HEPAT ITIS B CORE, IGM hepatitis B core IgM antibody Non-re active non-re active IgM anti- HBc not detec juan. Does not exclu de the possi bilit y of expos ure to or infec tion with HBV. Test Perfo rmed by: [facility] [address] [place] [address] Not Available [facility] (Lab) [address] [facility], [place], [address], 06/15/2024 14:10:01 06/07/19 25 06/06/2024 RPR SCREE N, REFLE X TITER /CONF IRMAT ION RPR qualitative Nonrea ctive nonrea ctive Not Available [facility] (Lab) [address] [facility], [place], [address], 06/15/2024 14:10:02 06/07/19 25 06/06/2024 TESTO STERO NE, FREE( DIALY SIS) AND TOTAL (LC/M S/MS) testosterone , total 8 NG/dL 2-45 For addit ional infor katy thurman e refer to http: //david johns.que stdia gnost ics.c om/fa q/ Total Testo stero neLCM SMSFA Q165 (This link is being provi ded for infor erich erickson/ educa abel l purpo ses only. ) This test was devel oped and its audra tical perfo rmanc e crsytal cteri stics have been deter mined by [facility]uel[facility] [place], [place]. It has not been clear ed or appro ej by the U.S. Food and Drug Admin istra tion. This assay has been valid ated pursu ant to the CLIA regul ation s and is used for clini jessica purpo ses. Not Available [facility] (Lab) [address] [facility] [address], [place], [address], 06/15/2024 14:10:02 06/07/19 25 06/06/2024 TESTO STERO NE, FREE( DIALY SIS) AND TOTAL (LC/M S/MS) testosterone , free 0.7 pg/mL 0.1-6. 4 This test was devel oped and its audra tical perfo rmanc e crystal cteri stics have been deter mined by [facility] [place] [place]. It has not been clear ed or appro ej by the U.S. Food and Drug Admin istra tion. This assay has been valid ated pursu ant to the CLIA regul ation s and is used for clini jessica purpo ses. Perfo rming Organ izati on Infor matio n: Site ID: AMD Name: [facility]ay farley [facility] Insti tute Addre ss: [id number] [employer] [place], [place] Direc tor: Mallory Sharma MD PhD Not Available [facility] (Lab) [address], [place], [address], 06/15/2024 14:10:02 06/07/19 25 06/06/2024 pregn yuridia test, urine HCG negati ve Not Available [facility] [address], [place], [address], 06/06/2024 09:47:59 10/12/19 24 10/12/2023 MAMMO , diagn miguelito , digit al, bilat eral No observ ation record ed. [facility] [address], [place], [address], 10/14/2023 13:11:47 06/12/19 25 06/11/2024 US, pelvi s No observ ation record ed. [email or web address] [address], [place], [address], 06/17/2024 16:08:58 06/12/19 25 06/12/2024 US, pelvi s No observ ation record ed. [email or web address] [facility] [address], [place], [address], 06/12/2024 12:04:20 06/12/19 25 06/12/2024 US, trans vagin al No observ ation record ed. [email or web address] [facility] [address], [place], [address], 06/12/2024 12:04:28 Result Notes None recorded. Problems Name Problem SNOMED Code Status Onset Date Resolution Date Notes Provider Name and Address Organization Details Recorded Time Disorder of hair AND/OR hair follicle Completed 201111/04/2020 Other specifie d diseases of hair and hair follicle s;Record ed Elsewher e: No Locat ion: [facility] S ource: E[employer] Structural Engineering Drafting Officer lucille: N Irinati ce ID: [id number] Cain lable Time: 04:15:[address] [facility] 1 10:37:47 Breast lump [id number] Completed 201211/04/2020 Breast Lump Or Mass;Rec orded Elsewher e: No Locat ion: [facility] S ource: [employer] Drafting Officer lucille: N Irinati ce ID: [id number] Cain lable Time: 11:00:[address] [facility] 10:37:41 Atypical squamous cells on cervical Papanico laou smear cannot exclude high grade squamous intraepi thelial lesion [id number] Completed 201211/04/2020 Papanico laou smear of cervix with atypical squamous cannot exclude high grade squamous intraepi thelial lesion (ASC-H); Recorded Elsewher e: No Locat ion: [facility] S ource: [employer] Drafting Officer lucille: N Practi ce ID: [id number] Cain lable Time: 04:30:[address] [facility] 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 10:37:42 Speciali zed medical examinat ion Completed 201311/04/2020 Routine gynecolo gical examinat ion;Prac margy ID: [id number] Marisol dotson [facility] 10:38:15 Pregnanc y test positive [id number] Completed 201311/04/2020 Positive Pregnanc y Test;Pra ctice ID: [id number] Marisol Diallo [facility] 10:38:02 Amenorrh ea [id number] Completed 201311/04/2020 Absence of menstrua tion;Rec orded Elsewher e: No Locat ion: [facility] S ource: EHR [employer] Drafting Officer lucille: N Practi ce ID: [id number] Cain lable Time: 03:30:00 PM Marisol dotson [facility] 10:37:32 Twin pregnanc y with antenata l problem [id number] Completed 201311/04/2020 Twin pregnanc y, antepart um conditio n or complica tion;Pra ctice ID: 0001 Marisol dotson [facility] 10:38:18 Routine antenata l care Completed 201311/04/2020 Supervis ion of other normal pregnanc y;Practi ce ID: 0001 Marisol dotson [facility] 10:38:05 Atypical squamous cells of undeterm ined signific ance on cervical Papanico laou smear [id number] Completed 201311/04/2020 Papanico laou smear of cervix with atypical squamous cells of undeterm ined signific ance (ASC-US) ;Recorde d Elsewher e: No Locat ion: [facility] S ource: EHR Structural Engineering Drafting Officer lucille: N Practi ce ID: 0001 Cain lable Time: 12:00:00 PM Marisol dotson, [facility] 10:37:34 Ultrason ography Completed 201311/04/2020 Antenata l screenin g for malforma tion using ultrason ics;Prac margy ID: 0001 Marisol dotson, [facility] 10:38:20 Antenata l screenin g Completed 201311/04/2020 Antenata l screenin g for malforma tion using ultrason ics;Prac margy ID: 0001 Marisol dotson, [facility] 10:37:33 Congenit al malforma tion [id number] Completed 201311/04/2020 Antenata l screenin g for malforma tion using ultrason ics;Prac margy ID: 0001 Marisol dotson, [facility] 10:37:44 Primigra danny [id number] Completed 201311/04/2020 Supervis ion of normal first pregnanc y;rIinati ce ID: 0001 Marisol dotson, [facility] 10:38:04 Dichorio lucille diamniot ic twin pregnanc y [id number] Completed 201311/04/2020 TWIN GEST-DIC H/DIAMNI OTC;Prac margy ID: 0001 Marisol dotson, [facility] 10:37:46 Known OR suspecte d abnormal ity affectin g manageme nt of mother Completed 201411/04/2020 Other known or suspecte d abnormal ity, not elsewher e classifi ed, affectin g manageme nt of mother, antepart um conditio n or complica tion;Pra ctice ID: 0001 Marisol dotson [facility] 10:37:[address] Concept Completed 201411/04/2020 Encntr for obstetrics gynecology md exam (general ) (routine ) w/o abn findings ;Practic e ID: 0001 Marisol dotson [facility] 10:38:13 Syphilis test finding [id number] Completed 201411/04/2020 Encntr screen for infectio ns w sexl mode of transmis s;Practi ce ID: 0001 Marisol dotson [facility] 10:38:17 Infectio n screenin g Completed 201411/04/2020 Encounte r for screenin g for oth infec/pa rastc diseases ;Practic e ID: 0001 Marisol dotson [facility] 10:37:53 Body mass index 25-29 - overweig ht [id number] Completed 201411/04/2020 Body mass index (BMI) 28.0-28. 9, adult;Pr actice ID: 0001 Marisol dotson [facility] 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 10:37:30 Pregnanc y test negative [id number] Completed 201611/04/2020 Encounte r for pregnanc y test, result negative ;Recorde d Elsewher e: No Locat ion: [facility] S ource: EHR Structural Engineering Drafting Officer lucille: N Practi ce ID: 0001 Cain lable Time: 10:15:00 AM Marisol Diallo [facility] 10:38:00 Postcoit al finding [id number] Completed 201611/04/2020 Postcoit al and contact bleeding ;Practic e ID: 0001 Marisol Diallo [facility] 10:37:58 Screenin g for malignan t neoplasm of cervix Completed 201611/04/2020 Screenin g for malignan t neoplasm s of the cervix;R ecorded Elsewher e: No Locat ion: [facility] S ource: EHR Structural Engineering Drafting Officer lucille: N Practi ce ID: 0001 Cain lable Time: 08:30:00 AM Marisol Diallo [facility] 10:38:07 Breast lump Completed 201811/04/2020 Fibrocys tic disease of breast;R ecorded Elsewher e: No Locat ion: [facility] S ource: EHR Structural Engineering Drafting Officer lucille: N Practi ce ID: 0001 Cain lable Time: 08:45:00 AM Marisol Diallo [facility] 10:37:39 Lump in lower outer quadrant of right breast [id number] Completed 201811/04/2020 Unspecif ied lump in the right breast, lower outer quadrant ;Practic e ID: 0001 Marisol Diallo [facility] 10:37:[address] Concept Completed 201811/04/2020 Encntr for obstetrics gynecology md exam (general ) (routine ) w abnormal findings ;Practic e ID: [address] [facility] 10:38:09 Problem Notes None recorded. Procedures Surgical History Date Name Laterality Status Provider Name and Address Organization Details Recorded Time 4 Date of Last Pap Smear completed AYANATracy Hinkle [facility] 06/06/2024 09:37:28 3 completed [facility] 09/11/2023 14:58:20 3 Date of Last Mammogram completed [facility] 09/11/2023 14:58:20 7 Colposcopy completed [facility] 11/04/2020 10:40:19 5 delivery completed Vicenta Phoenix [facility] 10/25/2019 15:02:57 Imaging Results None recorded. Procedure Notes None recorded. Medical Equipment None Reported. Allergies No known drug allergies Medications Name Sig Start Date Stop Date Status Note LastModified by Organization Details LastModified Time promethaz ine-DM 6.25 mg-15 mg/5 mL oral syrup TAKE 10 ML BY MOUTH EVERY 8 HOURS FOR 5 DAYS NEEDED 09/10 completed Not Available Not Available Not Available doxycycli ne hyclate 100 mg capsule TAKE 1 CAPSULE BY MOUTH TWICE DAILY FOR 5 DAYS 10/10 completed Not Available Not Available Not Available cetirizin e 10 mg tablet TAKE 1 TABLET BY MOUTH DAILY 06/06 completed Not Available Not Available Not Available benzonata te 200 mg capsule TAKE 1 CAPSULE BY MOUTH THREE TIMES DAILY FOR 10 DAYS NEEDED FOR COUGH active Not Available Not Available No t Available metronida zole 0.75 % (37.5 mg/5 gram) vaginal gel INSERT ONE APPLICAT ORFUL VAGINALL Y AT BEDTIME FOR 5 DAYS. 10/10 completed Not Available Not Available Not Available prednison e 20 mg tablet TAKE 3 TABLETS BY MOUTH DAILY FOR 2 DAYS THEN TAKE 2 TABLETS BY MOUTH DAILY FOR 3 DAYS THEN TAKE 1 TABLET BY MOUTH DAILY FOR 3 DAYS active Not Available Not Available No t Available Mircette (28) 0.15 mg-0.02 mg (21)/0.01 mg (5) tablet take 1 tablet by oral route every day 10/31 completed Prescrib ed Elsewher e: No Locat ion: [facility] odify By: james luna DateTime : 09/14/19 12 09:00:00 AM Not Available Not Available Not Available Flagyl 500 mg tablet take 1 tablet (500MG) by oral route every 8 hours 10/31 completed Prescrib ed Elsewher e: No Locat ion: [facility] odify By: james luna DateTime : 09/16/19 12 09:41:21 AM Not Available Not Available Not Available oseltamiv ir 75 mg capsule TAKE 1 CAPSULE BY MOUTH EVERY 12 HOURS FOR 5 DAYS 09/10 completed Not Available Not Available Not Available Vitamin D2 1,250 mcg (50,000 unit) capsule take 1 capsule by oral route every week 01/23 completed Prescrib ed Elsewher e: No Locat ion: [facility] odify By: yovani piedra DateTime : 02/01/20 14 03:55:22 PM Not Available Not Available Not Available ondansetr on 4 mg disintegr ating tablet DISSOLVE 1 TABLET ON THE TONGUE EVERY 6 HOURS FOR 4 DAYS NEEDED 09/10 completed Not Available Not Available Not Available Zofran 2 mg/mL intraveno us solution inject 2 millilit er by intraven ous route over for nausea or vomiting after surgery 01/23 completed Prescrib ed Elsewher e: Yes Loca tion: [facility] odify By: yovani piedra DateTime : 01/08/20 14 03:30:00 PM Not Available Not Available Not Available multivita min capsule take 1 capsule by oral route every day 03/24 completed Prescrib ed Elsewher e: Yes Loca tion: [facility] odify By: lyubov zuluaga DateTime : 01/24/20 15 08:30:00 AM Not Available Not Available Not Available fluticaso ne propionat e 50 mcg/actua tion nasal spray,miriam pension USE 1 TO 2 SPRAYS IN EACH NOSTRIL EVERY DAY FOR 1 WEEK THEN DIRECTED 06/06 completed Not Available Not Available Not Available amoxicill in 875 mg-potass ium clavulana te 125 mg tablet TAKE 1 TABLET BY MOUTH TWICE DAILY FOR 10 DAYS 03/17 completed Not Available Not Available Not Available phentermi ne 10/10 completed Not Available Not Available Not Available Rashid uo DHA 29 mg-1 mg-400 mg oral pack take 2 by Oral route once for 30 days 02/05 completed Prescrib ed Elsewher e: No Locat ion: [facility] odify By: iona melissauntbernadette DateTime : 01/08/20 14 03:30:00 PM Not Available Not Available Not Available One Daily 27 mg iron-800 mcg tablet take 1 tablet by oral route every day 01/23 completed Prescrib ed Elsewher e: Yes Loca tion: [facility] odify By: yovani piedra DateTime : 01/08/20 14 03:30:00 PM Not Available Not Available Not Available Seasonale (91) 0.15 mg-30 mcg tablets,3 month dose pack take 1 tablet by oral route every day 01/07 completed Prescrib ed Elsewher e: No Locat ion: [facility] odify By: cira Ortiz ncounter DateTime : 11/01/19 13 11:00:00 AM Not Available Not Available Not Available Simpesse 0.15 mg-30 mcg (84)/10 mcg(7) tablets,3 month dose pack TAKE 1 TABLET BY MOUTH EVERY DAY active Not Available Not Available No t Available Gallifrey 5 mg tablet START 3 DAYS BEFORE YOUR EXPECTED PERIOD. TAKE 1 TABLET BY MOUTH THREE TIMES DAILY FOR 10 DAYS 10/10 completed Not Available Not Available Not Available Vitals Date Recorded Body height Body mass index (BMI) Body weight Systolic And Diastolic Systolic And Diastolic Provider Name and Address Organization Details Last Updated DateTime 06/06/2024 157.48 cm 29.3 kg/m2 31442.78 g 138/86 mm[Hg] 130/81 mm[Hg] AYANA Hinkle [facility] 09:47:21 Date Recorded Body height Body mass index (BMI) Body weight Systolic And Diastolic Provider Name and Address Organization Details Last Updated DateTime 06/26/2024 157.48 cm 28.9 kg/m2 44986.59 g 122/83 mm[Hg] [facility] 06/26/2024 18:06:19 Date Recorded Body height Body mass index (BMI) Body weight Systolic And Diastolic Provider Name and Address Organization Details Last Updated DateTime 09/11/2023 157.48 cm 30.4 kg/m2 13295.33 g 124/83 mm[Hg] Katie Foreman [facility] 09/11/2023 14:57:53 Date Recorded Body height Body mass index (BMI) Body weight Systolic And Diastolic Provider Name and Address Organization Details Last Updated DateTime 10/10/2024 157.48 cm 28.7 kg/m2 99424 g 136/96 mm[Hg] [facility] 10/10/2024 12:21:18 Social History Question Answer Notes LastModified by Organizat ion Details LastModified Time Tobacco Smoking Status Never Smoker Fadia dotson [facility] 04/18/2022 15:44:16 Are You Blind Or Do You Have Difficulty Seeing? No Information n ot available 11/04/2020 What Is Your Level Of Caffeine Consumption? Occasional Information not available 11/04/2020 How Much Tobacco Do You Chew? None Information not available 04/18/2022 In The 14 Days Before Symptom Onset, Have You Had Close Contact With A Laboratory-confirm ed COVID-19 While That Case Was Ill? No Information n ot available 04/18/2022 In The 14 Days Before Symptom Onset, Have You Had Close Contact With A Person Who Is Under Investigation For COVID-19 While That Person Was Ill? No Information not available 04/18/2022 Have You Been To An Area Known To Be High Risk For COVID-19? No Information not available 04/18/2022 Are You Deaf Or Do You Have Serious Difficulty Hearing? No Information not available 11/04/2020 What Type Of Diet Are You Following? REGULAR Information n ot available 11/04/2020 What Is The Highest Grade Or Level Of School You Have Completed Or The Highest Degree You Have Received? [id number] Information not available 04/18/2022 Do You Use Protection During Sex? No Information not available 04/18/2022 Do You Use Your Seat Belt Or Car Seat Routinely? Yes Information not available 11/04/2020 Do You Have Smoke And Carbon Monoxide Detectors In Your Home? Yes Information not available 11/04/2020 How Much Tobacco Do You Smoke? No Information not available 04/18/2022 Do You Use Sunscreen Routinely? No Information not available 04/18/2022 Have You Used IV Drugs? No Information not available 04/18/2022 Do You Have Difficulty Walking Or Climbing Stairs? No Information not available 04/18/2022 Sex: Unknown Functional Status Question Answer Note LastModified by Organizat ion Details LastModified Time Do you use any illicit or recreational drugs? No Information not available 11/04/2020 What is your level of alcohol consumption? Occasional Information not available 11/04/2020 Are you able to walk independently without assistance or assistive devices? YESWOREST Information not available 11/04/2020 Are you able to care for yourself independently? 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 No Information not available 04/18/2022 What is your exercise level? Occasional Information not available 04/18/2022 Mental Status Question Answer Note LastModified by Organization D etails LastModified Time Do you feel stressed (tense, restless, nervous, or anxious, or unable to sleep at night)? [id number] Information not available 11/04/2020 Family History Relationship Description Onset Age of this Age Resolved Age Notes LastModified by Organization Details LastModified Time Maternal Grandmother Diabetes mellitus [email or web address] Not available 2019 14:59:55 Maternal Grandfather Carcinoma in situ of lung [email or web address] Not available 01/2024 14:52:54 Paternal Grandmother Diabetes mellitus [email or web address] Not available 2019 15:00:17 Paternal Grandfather Carcinoma in situ of lung [email or web address] Not available 01/2024 14:52:54 Maternal Aunt Disorder of thyroid gland [email or web address] Not available 2019 15:00:48 Mother Malignant carcinoid tumor [email or web address] Not available 2023 14:52:54 Medical History Condition Response Allergies (Food, seasonal, environmental ) N Other N Drug/Latex Allergies/Reactions N Blood Transfusion N Breast Cancer N Dermatologic Disorders N Lung Disease N Defects or Inherited Disease N Breast Problem N Gestational Diabetes N Hematologic disorders N Anesthesia Complications N History of STI N Deep Vein Thrombosis N Polycystic ovary syndrome N Anxiety Disorder N Autoimmune disease N Arthritis N Polyps N Infertility N Acid Reflux (GERD) N History of abnormal pap N Cancer N Varicosities N Stroke N Neurologic/Epilepsy N Endometriosis N High Cholesterol N Fibromyalgia N Headaches N Kidney Disease N Heart Problems N Thyroid Problems N Kidney or Bladder Problems N GI Problems N Eating Disorder N Anemia N Art (IVF or FET) N Psychiatric Illness N Ovarian Cancer N Diabetes N Pulmonary (TB, Asthma) N Hepatitis/Liver Disease N No Past Medical History N Eczema N Urinary Tract Infection N Abuse/Domestic Violence N Asthma N Trauma/Violence N Depression/ depression N Heart Disease N Pre-Eclampsia N Hypertension N Osteoporosis N Thrombophilias N Gynecological History Statement/Question Response Date of Last Mammogram 05/25/2022 Flow Moderate Date of LMP 05/19/2024 Was last menstrual period normal Y STIs/STDs N 05/25/2022 Date of Last Colonoscopy None Desired Control Method None Abnormal Pap Y On BCP's at Conception? N Colposcopy 06/06/2016 HPV Vaccine N Duration of Flow (days) Current Control Method None Are cycles usually normal Y Frequency of Cycle (Q days) 4 Sexually Active? Yes Menses Monthly Y Date of DEXA bone scan Age of first menstrual cycle 16 Date of Last Pap Smear 09/11/2023 Sexual Problems? N LMP Definite Obstetrics History GPAL:G 2 P 0 1 1 2 Type Value Multiple Births 1 Induced 1 Premature 1 Living 2 Total 2 Past Encounters Encounter ID Performer Location Encounter Start Date Encounter Closed Date Diagnosis/Indication Diagnosis SNOMED-CT Code Diagnosis ICD10 Code Diagnosis IMO Codes [facility] [id number] [facility] [address] [address] 10/25/2019 14:46:54 10/25/2019 16:28:05 Gynecologic examination 44329559 Z01.419 Take Calcium with Vitamin D 1200mg daily if not receiving in daily diet. It is strongly advised to have an annual flu shot and up can obtain at most pharmacies . If you have not had a TDap shot in the last 10 years you should obtain one as well. Discussed with patient & provided with informatio n regarding Gardisil vaccine to prevent the 4 strains for HPV that cause cervical cancer if under age 26. Encourage safe sexual practices, to use condoms and limit partners if not already in a monogamous relationsh ip. Do monthly self breast exams. Have mammogram yearly or every other year depending on family history. BRCA testing is now available for patients with strong genetic history of female cancer. If interested contact the office. Engage in daily exercise of low impact aerobic exercise 45-60 minutes 4-5 times weekly. Avoid tobacco and illicit drugs as well as using moderation with alcohol intake less than 1-2 8 oz beverages daily. This lifestyle behavior pattern will lead to less health conditions and longer life span. If BMI greater than 25 weight watchers or dietary consult advised. Patient received above instructio ns, and questions have been answered. If you have any questions please call or respond to this email. Patient was made aware of the patient portal and may obtain a paper copy of today's plan if desired. Declined need std screen [id number] [facility] [address],[facility] [place] [address] 11/04/2020 10:11:30 11/04/2020 11:22:38 Gynecologic examination 32217543 Z01.419 Take Calcium with Vitamin D 1200mg daily if not receiving in daily diet. It is strongly advised to have an annual flu shot and up can obtain at most pharmacies . If you have not had a TDap shot in the last 10 years you should obtain one as well. Discussed with patient & provided with informatio n regarding Gardisil vaccine to prevent the 4 strains for HPV that cause cervical cancer if under age 26. Encourage safe sexual practices, to use condoms and limit partners if not already in a monogamous relationsh ip. Do monthly self breast exams. Have mammogram yearly or every other year depending on family history. BRCA testing is now available for patients with strong genetic history of female cancer. If interested contact the office. Engage in daily exercise of low impact aerobic exercise 45-60 minutes 4-5 times weekly. Avoid tobacco and illicit drugs as well as using moderation with alcohol intake less than 1-2 8 oz beverages daily. This lifestyle behavior pattern will lead to less health conditions and longer life span. If BMI greater than 25 weight watchers or dietary consult advised. Patient received above instructio ns, and questions have been answered. If you have any questions please call or respond to this email. Patient was made aware of the patient portal and may obtain a paper copy of today's plan if desired. Declined need std screenPap/ hpv sentLeep 2012 but wnl pap/hpv since this timeMammo start next yearSBE reviewedNo issues or concerns [id number] DAVID Quezada [facility] [address],[facility] [place] [address] 04/18/2022 15:33:30 04/18/2022 17:41:11 Breast lump [id number] N63.0 Gynecologi c examination [id number] Z01.419 Suggested Calcium with Vitamin D 1200-1500m g daily. Patient advised to get an annual flu shot in the fall and she could obtain at [facility] or [facility] clinic. Also to obtain TDap vaccinatio n if you have not had one in the last 10 years. Recommend yearly mammograms . Encouraged monthly self breast exams. Encourage safe sexual practices, to use condoms and limit partners if not already in a monogamous relationsh ip. Engage in daily exercise of low impact aerobic exercise 45-60 minutes 4-5 times weekly. Avoid tobacco and illicit drugs as well as using moderation with alcohol intake less than 1-2 8 oz beverages daily. This lifestyle behavior pattern will lead to less health conditions and longer life span. If BMI greater than 25 weight watchers or dietary consult advised. All questions have been answered. Patient appears to understand informatio n, but if you have any questions please call or respond to this email. WWEHx of abnormal pap with LEEP 2013Normal pap hx sincePap done todaySTI testing added to papBlood STI testing declinedBi lateral breast lumps felt throughout breast. She drinks about 3-4 cups of coffee per day. We discussed decreasing caffeine intake. Diagnostic imaging ordered.Ge netic testing discussedU TD with PCPRTC in 1 year or sooner if needed Venereal d isease screening [id number] Z11.3 [id number] DAVID Quezada [facility] [address] [address] 09/11/2023 14:48:35 09/11/2023 15:29:26 Gynecologic examination 56048405 Z01.419 Z11.51 WWEBC - declinedpa p updatedgc/ ct/trich testing added to paproutine labs/PCPRT C in 1 yr or sooner if needed It is strongly advised to have an annual flu shot and up can obtain at most pharmacies . If you have not had a TDap shot in the last 10 years you should obtain one as well. Discussed with patient & provided with informatio n regarding Gardisil vaccine to prevent the 4 strains for HPV that cause cervical cancer if qualifies. Encourage safe sexual practices, to use condoms and limit partners if not already in a monogamous relationsh ip. Do monthly self breast exams. BRCA testing is now available for patients with strong genetic history of female cancer. If interested contact the office. Engage in regular exercise. Avoid tobacco and illicit drugs. This lifestyle behavior pattern will lead to less health conditions and longer life span. If BMI greater than 25 dietary consult advised. Patient received above instructio ns, and questions have been answered. If you have any questions please call or respond to this email. Patient was made aware of the patient portal and may obtain a paper copy of today's plan if desired. Breast lump 64382293 N63 .0 recommende d updated diagnostic mammogram with left breast u/sorder given Venereal d isease screening 317004745 Z11.3 [id number] DAVID Quezada [facility] [address] [address] 06/06/2024 09:25:45 06/06/2024 11:36:08 Irregular periods 88904508 N92.6 Abnormal u terine bleeding [id number] 9100 N93.9 The patient and I discussed the various causes of abnormal uterine bleeding, including polyps, fibroids, hyperplasi a, atypia, anovulatio n, etc. We reviewed the typical evaluation with labs, pelvic US and possible endometria l biopsy. Briefly discussed the options available for treatment (depending on the results of evaluation ). UPT (-)gc/ct/t rich testing sent per pt requestlab s orderedpel wei u/s orderedshe will RTC for u/s and f/u to review results / discuss next stepspreca utions reviewed Time spent in visit is a total of 30 mins with at least 50% of visit consisting of counseling and review of plan of care. Venereal d isease screening 019758366 Z11.3 Sexually t ransmitted infectious disease 1720356 A64 [id number] Liam Watkins MD [facility] [address] [address] 06/11/2024 17:35:00 06/12/2024 07:06:36 Irregular periods 41033468 N92.6 [id number] Liam Watkins MD [facility] [address] [place] [id number] 06/26/2024 17:59:37 06/27/2024 07:49:52 Menorrhagia [id number] N92.0 this patient is a 44-year-ol d female with severe menorrhagi a and abnormal uterine bleeding. Irregularl y irregular heavy bleeding. Her laboratory evaluation and ultrasound are essentiall y normal. She does have an Endocervic al polyp. We discussed her treatment options in great detail. We discussed medical treatment options, procedures , surgeries. We narrow down her prefer treatments to endometria l ablation with salpingect leo and polypectom y or robotic assisted hysterecto my with bilateral salpingect leo, to keep her ovaries. I spent over 30 minutes on the patient's care in total. She will contact us when she has made a decision. [id number] Liam Watkins MD [facility] [address] [address] 10/10/2024 11:57:27 10/14/2024 07:42:41 Menorrhagia [id number] N92.0 [id number] This patient is a 44-year-ol d female with endometria l polyp and severe menorrhagi a. She had pelvic ultrasound . We reviewed those results today.. Patient has severe menorrhagi a. We discussed treatment Options. We discussed endometria l ablation and salpingect leo in detail. The patient is interested in pursuing these procedures . Affect she would like to move forward with endometria l ablation with hysterosco py D&C and laparoscop ic bilateral salpingect leo. The patient understand s the procedure. The procedure was described to the patient in great detail. the patient also understand s the risks. The risks were also explained in detail. She understand s that injuries May occur during surgery. She understand s these injuries can result in hospitaliz ation, more surgery, and severe illness. She understand s there is risk of hemorrhage and infection. I spent over 30 minutes on her care in total. Health Concerns Section Related Observation LastModified by Organization Detai ls LastModified Time None Recorded Concern Status LastModified by Organization Details LastModified Time None Recorded Advance Directives Directive None Recorded Payers Insurance Date Sequence Insurance Name Policy Number Policy Bass Covered Member ID Bass Member ID Guarantor Name 06/06/2024 2 [place] [id number] Trey Johns [id number] Jocelyne Johns 03/17/2025 1 [place] [id number] Jocelyne Johns [id number] Jocelyne Johns Notes Date Note Type Note Provider Name and Address Organization Details Recorded Time 4 text/html Annual GYNReported by PatientGenitourinary symptomsFor menstrual cycle, patient reportsnormal menses. For urinary symptoms, patient reportsno hematuriaandno incontinence. For vulva, patient reportsno genital lesion. For vagina, patient reportsnormal vaginal discharge.Breast symptomsFor breast, patient reportsno breast pain,no breast lump, andno nipple discharge.Endocrine symptomsFor sexual complaints, patient reportsno sexual complaints,no pain during intercourse, andnormal libido. For menopausal symptoms, patient reportsno menopausal symptomsandnormal vaginal lubrication.Psychological symptomsFor psychological symptoms, patient reportsno depression,no anxiety, andno pmdd.Preventative measuresFor preventive measures, patient reportsencourage self breast examination,encourage regular exercise,encourage no tobacco use, andencourage regular mammograms starting age 40.43yo WWEh/o LEEP 2013 - normal paps sincelast pap 04/2022 : arik, HPV (-) saw breast specialist last year for bilateral breast lumpdiagnostic mammogram and u/s done 05/2022 : bi-rads 2saw breast specialist 06/2022 who recommended routine yearly screening mammograms and clinical breast exams DAVID Quezada [address], [place], [address], [facility] 09/11/2023 15:27:39 5 text/html Beer - Abnormal BleedingReported by Patient 44yopresents with c/o irregular/heavy/painful periodssymptoms present x 6 monthsperiods are lasting longer, 6-10 days monthly, sometimes 2 periods in one monthsaturating a pad every 1-2 hours during heavy days, small clots, has had accidents on clothing/beddingcramping during her periodsSA with male partner, BC not practiced, no new partners last pap 09/2023 : nilm, HPV (-) neg current pelvic painneg n/v/fneg flu-like symptomsneg d/c, odors, itching DAVID Quezada [address], [place], [address], [facility] 06/06/2024 11:30:49 5 text/html this patient is a 44-year-old female with severe menorrhagia and abnormal uterine bleeding. Irregularly irregular heavy bleeding. Her laboratory evaluation and ultrasound are essentially normal. She does have an Endocervical polyp. We discussed her treatment options in great detail. We discussed medical treatment options, procedures, surgeries. We narrow down her prefer treatments to endometrial ablation with salpingectomy and polypectomy or robotic assisted hysterectomy with bilateral salpingectomy, to keep her ovaries. I spent over 30 minutes on the patient's care in total. She will contact us when she has made a decision. Liam Watkins MD [address], [place], [address], [facility] 06/26/2024 18:51:13 5 text/html This patient is a 44-year-old female with endometrial polyp and severe menorrhagia. She had pelvic ultrasound. We reviewed those results today.. Patient has severe menorrhagia. We discussed treatment Options. We discussed endometrial ablation and salpingectomy in detail. The patient is interested in pursuing these procedures. Affect she would like to move forward with endometrial ablation with hysteroscopy D&C and laparoscopic bilateral salpingectomy. The patient understands the procedure. The procedure was described to the patient in great detail. the patient also understands the risks. The risks were also explained in detail. She understands that injuries May occur during surgery. She understands these injuries can result in hospitalization, more surgery, and severe illness. She understands there is risk of hemorrhage and infection. I spent over 30 minutes on her care in total. Liam Watkins MD [address], [place], [address], [facility] 10/11/2024 16:43:27 OBGyn Episode Ob Episode Information Episode Created Date Number of Fetuses Patient Bloodtype Patient rh Status Prepregnancy Weight lbs Domestic Partner Domestic Partner Phone Father Name Client Analyst Status 10/25/19 20 2 CLOSED Fetus Data First Name Last Name Admitted to NICU Weight (g) Sex Living Outcome Pediatric Complications Fetus ID Race Codes Race Delivery Type M Prematur e 3144 Primary [id number] Primary Alessio Calculation Initial Alessio Date Initial Exam Date Initial Exam Provider Initial Ultrasound Date Last Menstrual Period Date Ultra Sound Weeks Gestation 0 Eighteen To Twenty Week Alessio Update Ultra Sound Date Fundal Height At Umbil Quickening Date Ultra Sound Latest Weeks Gestation Final Alessio Confirmed By Final Alessio Confirmed Date Final Alessio Date Ultra Sound Latest Days Gestation 0 0 Menstrual History Last Menstrual Date Menses Monthly On Bcp Conception Prior Menses Frequency Hcg Plus Date Menarche Onset Age Delivery Information Delivery Date Delivery Type Labor Anesthesia Weeks Gestation Incision Type Labor Labor Length Hrs Delivered By Post Complications Tubal Sterilization Discharge Date Comments 5 28 twins Discharge Information Feeding Method Contraceptive Method Maternal HG B and HCT Levels Ob Episode Information Episode Created Date Number of Fetuses Patient Bloodtype Patient rh Status Prepregnancy Weight lbs Domestic Partner Domestic Partner Phone Father Name Client Analyst Status 10/25/19 20 1 CLOSED Fetus Data First Name Last Name Admitted to NICU Weight (g) Sex Living Outcome Pediatric Complications Fetus ID Race Codes Race Delivery Type , Induced 3145 Alessio Calculation Initial Alessio Date Initial Exam Date Initial Exam Provider Initial Ultrasound Date Last Menstrual Period Date Ultra Sound Weeks Gestation 0 Eighteen To Twenty Week Alessio Update Ultra Sound Date Fundal Height At Umbil Quickening Date Ultra Sound Latest Weeks Gestation Final Alessio Confirmed By Final Alessio Confirmed Date Final Alessio Date Ultra Sound Latest Days Gestation 0 0 Menstrual History Last Menstrual Date Menses Monthly On Bcp Conception Prior Menses Frequency Hcg Plus Date Menarche Onset Age Delivery Information Delivery Date Delivery Type Labor Anesthesia Weeks Gestation Incision Type Labor Labor Length Hrs Delivered By Post Complications Tubal Sterilization Discharge Date Comments 4 Discharge Information Feeding Method Contraceptive Method Maternal HG B and HCT Levels
--- OUTSIDE RECORDS SUMMARY | 2025-03-20 02:52 | XMS_ITS | Clinical Summary ---
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 Gender Identity Not on file Sexual Orientation Not on file Plan of Treatment Health Maintenance Due Date Last Done Comments Hepatitis C Virus (HCV) Screening 1980 TdaP Immunization 1981 Hepatitis B Immunization (1 of 3 - 19+ 3-dose series) 2000 Pap Smear 2002 Human Papillomavirus (HPV) Immunization (1 - 3-dose SCDM series) 2008 Cervical Cancer Screening (CCS) 06/03/2011 HPV/Cotest 06/03/2011 Influenza Immunization (#1) 2024 02/18/2014 SARS-COV-2 Immunization ( season) 2024 01/30/2021, 2020, 05/12/2020 Respiratory Syncytial Virus (RSV) Immunization (Adult) (1 - 1-dose 75+ series) 2056 Meningococcal Immunization (ACWY) Aged Out No longer eligible b ased on patient's age to complete this topic Pneumococcal Immunization Combined Aged Out No longer eligible b ased on patient's age to complete this topic Rotavirus Immunization Aged Out No lo nger eligible based on patient's age to complete this topic
--- OUTSIDE RECORDS SUMMARY | 2025-03-20 02:52 | XMS_ITS | Clinical Summary ---
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 20 tablet 11/24/2023 Active fluticasone propionate (FLONASE) 50 MCG/ACT nasal spray 1-2 sprays by Nasal route daily. 1-2 sprays in each nostril qd; Start: 2 sprays in each nostril qd x1wk; Max: 2 sprays in each nostril/day 16 g 11/24/2023 Active Family History Medical History Relation Comments Cancer Mother Relation Status Comments Mother Social History Tobacco Use Types Packs/Day Years Used Date Smoking Tobacco: Never Smokeless Tobacco: Never Tobacco Cessation:Counseling Given: Not Answered Alcohol Use Standard Drinks/Week Comments Yes 0 (1 standard drink = 0.6 oz pur e alcohol) social Comments No Sex and Gender Information Value Date Recorded Sex Assigned at Not on file Legal Sex Female 4:19 PM CDT Gender Identity Not on file Sexual Orientation Not on file Last Filed Vital Signs Vital Sign Reading Time Taken Comments Blood Pressure 121/88 11/24/2023 4:30 PM CDT Pulse 95 11/24/2023 4:46 PM CDT Temperature 36.7 C (98.1 F) 11/24/2023 4:30 PM CDT Respiratory Rate 18 11/24/2023 4:30 PM CDT Oxygen Saturation 99% 11/24/2023 4:30 PM CDT Inhaled Oxygen Concentration - - Weight 70.3 kg (155 lb) 11/24/2023 4:30 PM CDT Height 161.3 cm (5' 3.5) 11/24/2023 4:30 PM CDT Body Mass Index 27.03 11/24/2023 4:30 PM CDT Plan of Treatment Health Maintenance Due Date Last Done Comments Annual Physical 1984 Hepatitis C 06/03/1999 DTaP, Tdap and Td Vaccines ( 1 - Tdap) 2000 Hepatitis B Vaccines (1 of 3 - 19+ 3-dose series) 2000 HPV Vaccines (1 - 3-dose SCD M series) 2008 Cervical Cancer Screening Pa p with HPV Testing (Age 30 to 64) Every 5 Years 06/03/2011 Mammogram Screening 2021 COVID-19 Vaccine (2024-2 6 season) 2024 01/30/2021, 2020, 05/12/2020 Influenza Adult (#1) 2025 02/13/2022, 04/04/2021, 02/18/2014 Cervical Cancer Screening Pa p Smear (Age 30 to 64) Every 3 Years 09/10/2026 09/11/2023, 09/11/2023, 09/11/2023 Cervical Cancer Screening wi th HPV 09/10/2026 Hepatitis A Vaccines Aged Out No long er eligible based on patient's age to complete this topic Meningococcal B Vaccine Aged Out No l onger eligible based on patient's age to complete this topic Meningococcal Vaccine Aged Out No aranza steve eligible based on patient's age to complete this topic Pneumococcal Vaccine: Pediatrics (0 to 5 Years) and At-Risk Patients (6 to 49 Years) Aged Out No longer eligible b ased on patient's age to complete this topic RSV Immunizations Under 20 Months Aged Out No longer eligible b ased on patient's age to complete this topic Insurance [employer] Care Teams Windows Security Engineer Relationship Specialty Start Date End Date None, Provider, PCP - General UNKNOWN PHYSICIAN SPECIALTY 11/24/23
[2025-03-20] MEDS: ACETAMINOPHEN 500 MG TABLET 1000 MG PO (10:00)
[2025-03-20] MEDS: KETOROLAC 15 MG/ML VIAL (*BKC) IV PUSH (10:00)
[2025-03-20] MEDS: LACTATED RINGERS 1,000 ML 30 ML IV CONT ×2 (10:00→12:03)
--- NOTE | 2025-03-20 10:24 | WPDANESEPPF ---
Anes - Initial Pre Proc Eval Procedure: Operation Date: 03/20/25 11:00 Proposed Procedures p Hysteroscopy with Alexsandra Endometrial Ablation, - Liam Watkins MD s Laparoscopic Bilateral Salpingectomy - Liam Watkins MD Date/Time: 03/20/25 10:24 Surgeon: Liam Watkins MD Pre Op Diagnosis: menorrhagia with regular cycle Patient Data Age: 44 Gender: F Height: 1.6 m Weight: 76.2 kg Allergies Allergy/AdvReac Type Severity Reaction Status Date / Time No Known Allergies Allergy Mild Verified 03/18/25 13:15 Home Medications ?Medication ?Instructions ?Recorded ?Confirmed ?Type cholecalciferol (vitamin D3) 25 25 mcg PO DAILY 03/18/25 03/18/25 History mcg (1,000 unit) capsule (Vitamin D3) lactobacillus combination no.4 3 3,000 mmu cells PO DAILY 03/18/25 03/18/25 History billion cell capsule (Probiotic) multivitamin-ferrous 1 tablet PO DAILY 03/18/25 03/18/25 History fumarate-folic acid 18 mg-400 mcg tablet (Centrum Women) phentermine 37.5 mg capsule 37.5 mg PO DAILY 03/18/25 03/18/25 History Patient hx anesthesia problems: none Family hx anesthesia problems: none Results Review: All pre-operative results and documents have been reviewed as part of the pre-operative evaluation. [facility] Past Medical History Medical History (Updated 03/20/25 @ 10:24 by Demond Thompson MD) Overweight Surgical History Surgical History (Updated 03/20/25 @ 10:24 by Demond Thompson MD) History of section Social History Social History Smoking status: Never smoker Alcohol intake: current Drinks per week: 1 Living arrangements: with family Spiritual care concerns: No Anes - Eval Final PreProcedure Day of Procedure 03/20/25 10:24 Patient weight: overweight Heart: regular rate and rhythm Lungs: clear to auscultation Airway: Mallampati scale class II Neurological: alert and oriented Last oral intake: >/= 8 hours ASA classification: II Emergent: no Anesthetic plan: proceed Anesthesia type and monitoring: general ETT and standard monitoring Results Review: All pre-operative results and documents have been reviewed as part of the pre-operative evaluation. Informed Consent: The patient's anesthetic plan and its attendant risks and benefits were discussed with the patient/family/POA. Questions were solicited and answers provided to the satisfaction of the patient/family/POA.
[2025-03-20] MEDS: SCOPOLAMINE 1 MG PATCH 1 PATCH TRANSDERM (10:45)
[2025-03-20 10:56] LABS: BEDSIDEPREGUCG Negative (Negative)
--- NOTE | 2025-03-20 11:12 | PM.IMHP2 ---
H&P: HPI History of Present Illness Date/Time: 03/20/25 11:12 Chief Complaint: Heavy vaginal bleeding Narrative: This patient is a 44-year-old female with severe menorrhagia and unwanted fertility. We agreed to perform laparoscopic bilateral salpingectomy, endometrial ablation with hysteroscopy. She understands risks, benefits, and alternatives. She has completed the informed consent process is ready to proceed. The patient understands the details of the procedure. The procedure has been explained in detail. She understands the risks. She understands that injuries may occur that result in hospitalization, more surgery, and severe illness. She understands risk of hemorrhage and infection. She denies any chest pain or shortness of breath. She denies any nausea, vomiting, fever, chills. Review of Systems Review of Systems: All systems reviewed & are unremarkable except as noted in HPI and below Constitutional: Constitutional: Denies chills, Denies fatigue, Denies fever(s) and Denies weakness Eyes: Eyes: Denies blurry vision, Denies change in vision, Denies loss of peripheral vision, Denies loss of vision, Denies other visual disturbances and Denies eye pain ENT: Denies vertigo, Denies dizziness, Denies hearing loss, Denies mouth pain, Denies nasal obstruction, Denies neck mass and Denies neck pain Cardiovascular: Cardiovascular: Denies chest pain, Denies diaphoresis, Denies syncope, Denies leg edema and Denies dyspnea Respiratory: Respiratory: Denies chest congestion, Denies cough, Denies hemoptysis, Denies dyspnea and Denies wheezing Gastrointestinal: Gastrointestinal: Denies abdominal pain, Denies constipation, Denies diarrhea, Denies nausea and Denies vomiting Genitourinary: Genitourinary: Denies hematuria, Denies change in libido, Denies nocturia, Denies genital lesions, Denies flank pain and Denies urinary urgency Musculoskeletal: Musculoskeletal: Denies abnormal gait, Denies back pain, Denies myalgias, Denies arthralgias, Denies joint swelling, Denies muscle weakness and Denies neck pain Integumentary/Breasts: Skin/Breast: Denies swelling, Denies breast pain, Denies breast mass, Denies dry skin, Denies nipple discharge, Denies unusual bruising and Denies jaundice Neurologic: Denies Neuro-related abnormal movements, Denies Abnormal speech present, Denies abnormal gait, Denies behavioral changes, Denies confusion, Denies vertigo, Denies dizziness, Denies syncope, Denies loss of vision, Denies memory loss, Denies convulsions and Denies weakness Psychiatric: Psychiatric: Denies abnormal sleep pattern, Denies behavioral changes, Denies change in libido, Denies confusion, Denies depression, Denies anhedonia and Denies memory loss Endocrine: Endocrine: Reports no additional endocrine complaints, Denies change in libido and Denies fatigue Hematologic/Lymphatic: Hematologic/Lymphatic: Reports no additional hematologic/lymphatic complaints Allergic/Immunologic: Allergic/Immunologic: Reports no additional allergic/immunologic complaints and Denies wheezing PMFSH Past Medical History Medical History (Updated 03/20/25 @ 11:13 by Liam Watkins MD) Overweight Surgical History Surgical History (Updated 03/20/25 @ 10:24 by Demond Thompson MD) History of section Social History Social History Smoking status: Never smoker Alcohol intake: current Drinks per week: 1 Living arrangements: with family Spiritual care concerns: No Meds Home Medications and Allergies Home Medications ?Medication ?Instructions ?Recorded ?Confirmed ?Type cholecalciferol (vitamin D3) 25 25 mcg PO DAILY 03/18/25 03/20/25 History mcg (1,000 unit) capsule (Vitamin D3) lactobacillus combination no.4 3 3,000 mmu cells PO DAILY 03/18/25 03/20/25 History billion cell capsule (Probiotic) multivitamin-ferrous 1 tablet PO DAILY 03/18/25 03/20/25 History fumarate-folic acid 18 mg-400 mcg tablet (Centrum Women) phentermine 37.5 mg capsule 37.5 mg PO DAILY 03/18/25 03/20/25 History Allergies Allergy/AdvReac Type Severity Reaction Status Date / Time No Known Allergies Allergy Mild Verified 03/20/25 10:46 Vital Signs Vital Signs - 24 hr 03/20/25 10:00 Temperature 98.7 F Pulse Rate 80 Respiratory Rate 16 Blood Pressure 127/87 Pulse Oximetry 100 Oxygen Delivery Room Air Exam Const: General: cooperative, healthy appearing, comfortable and no acute distress Orientation/consciousness: oriented to person, oriented to place and oriented to time HENMT: Head: normal to inspection Ears: external ears normal Face/Nose/Sinus: Normal external nose present and normal facial exam Face and sinus: normal facial exam Eyes: General: appearance normal, both eyes and all related structures Neck: Neck: normal visual inspection, trachea midline and supple Resp: Auscultation: clear to auscultation bilaterally, no crackles, no rales, no rhonchi and no wheezes Cardio: Rate: regular rate Rhythm: regular rhythm Heart sounds: no click, no murmurs and no rubs GI: GI Palp: No abdominal tenderness, No Soft to palpation, No Tenderness to palpation present (GI) and No Palpable mass present Auscultation: normal bowel sounds Skin: General skin exam: normal color and no rashes or lesions noted Neuro: General: oriented to person, oriented to place and oriented to time Extrem: General: normal to inspection, no joint enlargement, no clubbing, cyanosis or edema, no pedal edema and no calf tenderness Psych: Appearance: grossly normal Mental Status: mental status grossly normal Speech and movement: Normal speech and movement present Assessment and Plan Assessment and plan (1) Menorrhagia: Code(s): N92.0 - Excessive and frequent menstruation with regular cycle Status: Acute (2) Unwanted fertility: Code(s): Z30.09 - Encounter for other general counseling and advice on contraception Status: Acute Plan This patient is a 44-year-old female with severe menorrhagia and unwanted fertility. We agreed to perform laparoscopic bilateral salpingectomy, endometrial ablation with hysteroscopy. She understands risks, benefits, and alternatives. She has completed the informed consent process is ready to proceed.
--- NOTE | 2025-03-20 11:13 | WPDHPUPDATE1 ---
History and Physical Update Update Date/Time: 03/20/25 11:13 History and Physical has been reviewed, including an updated exam of the patient. There are NO changes in the patient's condition. Risks, benefits, and alternatives have been discussed and questions answered. Patient agrees to proceed with procedure.
--- NOTE | 2025-03-20 11:43 | S_PTH ---
PATIENT: Jocelyne Johns LOC: [facility] U#:[id number] AGE/SX: 44/F ROOM: RE03/20/[address]: Liam Watkins MD : 1980 BED: DIS: 03/20/2025 SPEC #: [id number] RECD: 03/20/25 12:26 STATUS: SHAREE ZAVALA #: [id number] YONI: 03/20/25 11:[address]: Liam Watkins DEPT: [facility] Surgical RECD BY: Tiffanie Le Tissues: A - Fallopian Tube Bilateral B - Endometrial Curettings Procedures: Gross and Microscopic Level 2 Hematoxylin and Eosin Stain Gross and Microscopic Level 4
--- NOTE | 2025-03-20 12:32 | P.OP_ITS ---
Procedure Note - Detailed Date of Procedure 03/20/25 Pre-op Diagnosis menorrhagia with regular cycle Post-op Diagnosis Same Procedure Performed Laparoscopic bilateral salpingectomy with endometrial ablation and hysteroscopy. Surgeon Liam Watkins MD Anesthesia General Indications Menorrhagia, female sterilization Findings normal pelvic anatomy Description of Procedure Patient was taken the operating room. She has prepped draped in the dorsal lithotomy position after induction of general anesthesia. A 5 mm abdominal incision was made in left upper quadrant of the abdomen with scalpel. A 5 mm trocars inserted the intra-abdominal cavity under direct visualization of the scope. Pneumoperitoneum was achieved. A 5 mm periumbilical incision was made using a scalpel on the abdominal scan. A 5 mm trocar was inserted the intra- abdominal cavity under visualization of the scope. A 5 mm incision made left lower quadrant of the abdomen. A 5 mm trocar was inserted the intra-abdominal cavity and direct visualization of the scope. The bilateral fallopian tubes were removed. The paratubal tissue in the area of the uterus was grasped with the LigaSure cautery and transected after being cauterized. The paratubal tissue from the ovary to the uterine cornu was cauterized and transected with LigaSure cautery. This was all done in a bilateral fashion. The tube was transected at the area of the uterine cornua and the tubes was removed through the 5 mm trocar site. The pneumoperitoneum was reduced. The trocars were removed. The skin was closed with subcuticular 4 Monocryl and covered with Dermabond. Our attention was then turned to the endometrial ablation portion of the procedure. A speculum was placed in the vagina. The cervix was grasped with a tenaculum. The cervix was dilated to approximately 8 mm with Flores dilators. The hysteroscope was inserted. And the below findings were noted. All of the intrauterine surfaces were curettaged with a medium-size curette and the specimens were collected. Measurements of the cervix were taken using the uterine sound and the hysteroscope. The intrauterine cavity measurements were entered into the handpiece. The device was inserted into the intrauterine cavity and the array was expanded. The balloon cuff was inflated. When an adequate seal was formed the safety and energy cycles were initiated and completed. The array was collapsed, the balloon was deflated. The insert was withdrawn. The hysteroscope was reinserted and a well desiccated intrauterine cavity was observed. The patient was taken recovery room stable condition. Sponge lap and needle counts were correct x2. She tolerated the procedure well. Pathology Yes Complications No immediate complications Condition Stable Disposition PACU
[2025-03-20] MEDS: fentaNYL CITRATE INJ (*CRX) 100 MCG/2 ML VIAL 25 MCG IV PUSH ×8 (12:58→13:16)
[2025-03-20] MEDS: oxyCODONE HCL (*CRX) 5 MG TAB IR PO (13:46)
== END 2025-03-20 15:05 | disposition home or self-care (01) ==
PROVIDERS: Anesthesiology; Visit Provider Obstetrics & Gynecology
PROC: 0U5B8ZZ Destruction of Endometrium, Via Natural or Artificial Opening Endoscopic (ICD-10-PCS; CPT 58563; principal; 2025-03-20 11:00)
PROC: (CPT 49320; 2025-03-20 11:00)
DX: N92.0 Excessive and frequent menstruation with regular cycle (principal); Z30.2 Encounter for sterilization
CPT/HCPCS: 58661; 58563; 88302; 88305; A9270; J1885; J2003; J2250; J2405; J2704; J3010; J7120